=== PATIENT | male | born 1955 | race American Indian/Alaskan Native ===

== ENCOUNTER 2016-12-25 21:53 | Observation (INO) | payer MEDICARE ==
[2016-12-25 22:00] VITALS: BMI 34.4
[2016-12-25] MEDS ORDERED: Morphine 2 mg/ml ISec IVP STA (22:18)
--- NOTE | 2016-12-25 22:22 | ED PDOC ---
Arrival/HPI - General Chief Complaint: Chest Pain Time Seen by Provider: 12/25/16 21:55 Historian: Patient, Family - History of Present Illness Narrative History of Present Illness (Text): 12/25/16 22:17 Derrek Fry is a 61 year old male, whose past medical history includes CAD with stents, [place], hypertension, diabetes, hyperlipidemia, and recent spinal fusion surgery in 10/2016, who presents to the emergency department complaining of chest pain and nausea today. Patient reports associated vomiting, diarrhea, and occasional abdominal discomfort. Patient denies any fever, chills, shortness of breath, urinary symptoms, headache, dizziness, or any other complaints. Time/Duration: Other (today) Symptom Onset: Gradual Symptom Course: Unchanged Activities at Onset: Rest, Light Context: Home Past Medical History - Provider Review Nursing Documentation Reviewed: Yes - Infectious Disease Hx of Infectious Diseases: None - Tetanus Immunization Tetanus Immunization: Up to Date - Cardiac Hx Cardiac Disorders: Yes Hx Hypertension: Yes - Pulmonary Hx Respiratory Disorders: Yes Hx Sleep Apnea: Yes - Neurological Hx Neurological Disorder: No - HEENT Hx HEENT Disorder: No - Renal Hx Renal Disorder: No - Endocrine/Metabolic Hx Endocrine Disorders: No Hx Diabetes Mellitus Type 2: Yes Other/Comment: NIDDM - Hematological/Oncological Hx Blood Disorders: No - Integumentary Hx Dermatological Disorder: No - Musculoskeletal/Rheumatological Hx Musculoskeletal Disorders: Yes Hx Degenerative Joint Disease: Yes Hx Falls: No - Gastrointestinal Hx Gastrointestinal Disorders: No - Genitourinary/Gynecological Hx Genitourinary Disorders: No - Psychiatric Hx Psychophysiologic Disorder: No Hx Anxiety: No Hx Bipolar Disorder: No Hx Depression: No Hx Emotional Abuse: No Hx Hallucinations: No Hx Panic Disorder: No Hx Post Traumatic Stress Disorder: No Hx Psychosis: No Hx Physical Abuse: No Hx Schizophrenia: No Hx Sexual Abuse: No Hx Substance Use: Yes (H/O) - Surgical History Hx Coronary Stent: Yes (2014) Other/Comment: right hip replacement - Anesthesia Hx Anesthesia: Yes Hx Anesthesia Reactions: No Hx Malignant Hyperthermia: No - Suicidal Assessment Feels Threatened In Home Enviroment: No Family/Social History - Physician Review Nursing Documentation Reviewed: Yes Family/Social History: No Known Family HX Smoking Status: Current Some Days Smoker Hx Alcohol Use: No Hx Substance Use: Yes (H/O) Substance used: marijuana Hx Substance Use Treatment: No Allergies/Home Meds Allergies/Adverse Reactions: Allergies No Known Allergies Allergy (Verified 09/13/16 09:22) Home Medications: Home Meds Medication Instructions Recorded Confirmed Morphine [Morphine Immediate 30 mg PO PRN PRN 12/26/16 12/26/16 Release Tab] Review of Systems - Physician Review All systems were reviewed & negative as marked: Yes - Review of Systems Constitutional: Normal. absent: Fevers Eyes: Normal ENT: Normal Respiratory: Normal. absent: SOB, Cough Cardiovascular: Chest Pain Gastrointestinal: Abdominal Pain, Diarrhea, Nausea, Vomiting Genitourinary Male: Normal. absent: Dysuria, Frequency, Hematuria, Urinary Output Changes Musculoskeletal: Normal. absent: Back Pain, Neck Pain Skin: Normal. absent: Rash Neurological: Normal. absent: Headache, Dizziness Endocrine: Normal Hemo/Lymphatic: Normal Psychiatric: Normal Physical Exam Vital Signs Reviewed: Yes Vital Signs Temp Pulse Resp BP Pulse Ox 12/26/16 01:30 71 16 138/78 100 12/25/16 23:08 76 18 139/68 100 12/25/16 22:00 99.6 F 82 17 143/92 H 100 Temperature: Afebrile Blood Pressure: Normal Pulse: Regular Respiratory Rate: Normal Appearance: Positive for: Well-Appearing, Non-Toxic, Comfortable Pain Distress: None Mental Status: Positive for: Alert and Oriented X 3 - Systems Exam Head: Present: Atraumatic, Normocephalic Pupils: Present: PERRL Extroacular Muscles: Present: EOMI Conjunctiva: Present: Normal Mouth: Present: Moist Mucous Membranes Neck: Present: Normal Range of Motion Respiratory/Chest: Present: Clear to Auscultation, Good Air Exchange. No: Respiratory Distress, Accessory Muscle Use Cardiovascular: Present: Regular Rate and Rhythm, Normal S1, S2. No: Murmurs Abdomen: Present: Normal Bowel Sounds. No: Tenderness, Distention, Peritoneal Signs Back: Present: Normal Inspection Upper Extremity: Present: Normal Inspection. No: Cyanosis, Edema Lower Extremity: Present: Normal Inspection. No: Edema Neurological: Present: GCS=15, CN II-XII Intact, Speech Normal Skin: Present: Warm, Dry, Normal Color. No: Rashes Psychiatric: Present: Alert, Oriented x 3, Normal Insight, Normal Concentration Medical Decision Making ED Course and Treatment: 12/25/16 22:17 Impression: 61 year old male complaining of chest pain, nausea, vomiting, diarrhea, and occasional abdominal discomfort. Plan: -- EKG -- CXR -- Labs, cardiac enzymes, lipase, VBG -- IV fluids -- Zofran -- Pepcid -- Morphine -- Reassess and disposition Prior Visits: Notes and results from previous visits were reviewed. Progress Notes: Reviewed EKG, NSR at [address]. Non-specific ST/T wave changes. 12/25/16 23:47 Reviewed radiology, CXR shows no active disease. 12/26/16 00:[address] Starks's service, awaiting call back. 12/26/16 01:14 Awaiting call back from Dr. Queen, covering for Dr. Starks. 12/26/16 02:[address] Queen, covering for Dr. Starks, who is aware and agrees with plan. Pt will go to Telemetry observation for chest pain. Pt and family agreeable with plan. - Lab Interpretations Lab Results: 12/25/16 22:10 12/25/16 22:25 Lab Results 12/25/16 22:25: pO2 50, VBG pH 7.39, VBG pCO2 45.0, VBG HCO3 27.2, VBG Total CO2 28.6 H, VBG O2 Sat (Calc) 90.0 H, VBG Base Excess 1.7, VBG Potassium 3.3 L, Sodium 141.0, Chloride 113.0 H, Glucose 116 H, Lactate 0.9, FiO2 21.0, Venous Blood Potassium 3.3 L 12/25/16 22:25: Sodium 140, Chloride 106, Potassium 3.3 L, Carbon Dioxide 26, Anion Gap 11, BUN 8, Creatinine 0.7, Est GFR ( Amer) > 60, Est GFR (Non- Af Amer) > 60, Random Glucose 115 H, Calcium 9.8, Total Bilirubin 0.5, AST 46, ALT 22, Alkaline Phosphatase 68, Lactate Dehydrogenase 362, Total Creatine Kinase 113, Troponin I < 0.01, Total Protein 7.8, Albumin 4.1, Globulin 3.8, Albumin/Globulin Ratio 1.1, Lipase 201 12/25/16 22:10: WBC 9.3, RBC 3.90, Hgb 9.8 L, Hct 30.6 L, MCV 78.5 L, MCH 25.1, MCHC 32.0, RDW 16.1 H, Plt Count 536 H, MPV 9.7 12/25/16 22:10: PT 11.1, INR 1.03, APTT 26.5 I have reviewed the lab results: Yes - RAD Interpretation Narrative RAD Interpretations (Text): CXR shows no active disease. Radiology Orders: 12/25/16 22:28 CHEST PORTABLE [RAD] Stat School Guidance Counselor: ED Physician - EKG Interpretation Interpreted by ED Physician: Yes Type: 12 lead EKG - Medication Orders Current Medication Orders: Sodium Chloride (Sodium Chloride 0.9%) 1,000 mls @ 100 mls/hr IV .Q10H [facility] Last Admin: 12/25/16 22:32 Dose: 100 mls/hr Discontinued Medications Aspirin (Aspirin) 325 mg PO ONCE STA Stop: 12/26/16 00:44 Last Admin: 12/26/16 00:53 Dose: 325 mg Famotidine (Pepcid) 20 mg IVP STAT STA Stop: 12/25/16 22:19 Last Admin: 12/25/16 22:32 Dose: 20 mg Morphine Sulfate (Morphine) 2 mg IVP STAT STA Stop: 12/25/16 22:19 Last Admin: 12/25/16 22:32 Dose: 2 mg Re-Assess: THALIA Pain Assessment Document 12/25/16 23:32 [facility] (Rec: 12/26/16 00:29 [facility] [id number]) Pain Reassessment Is this a pain reassessment? Yes Sleep Is patient sleeping during reassessment? No Presence of Pain Presence of Pain Yes Pain Scale Used Pain Scale Used Numeric Location Upper or Lower Lower Pain Location Body Site Chest Description Intensity of Pain at present 4 Morphine Sulfate (Morphine) 4 mg IVP STAT STA Stop: 12/26/16 00:44 Last Admin: 12/26/16 00:52 Dose: 4 mg Ondansetron HCl (Zofran Inj) 4 mg IVP ONCE ONE Stop: 12/25/16 22:19 Last Admin: 12/25/16 22:32 Dose: 4 mg Potassium Chloride (K-Dur 20 Meq Er Tab) 20 meq PO STAT STA Stop: 12/26/16 00:24 Last Admin: 12/26/16 00:50 Dose: 20 meq - Scribe Statement The provider has reviewed the documentation as recorded by the Scribe Mariam Mary Provider Attestation: All medical record entries made by the Lesli were at my direction and personally dictated by me. I have reviewed the chart and agree that the record accurately reflects my personal performance of the history, physical exam, medical decision making, and the department course for this patient. I have also personally directed, reviewed, and agree with the discharge instructions and disposition. Disposition/Present on Arrival - Present on Arrival Any Indicators Present on Arrival: No History of DVT/PE: No History of Uncontrolled Diabetes: No Urinary Catheter: No History of Decub. Ulcer: No History Surgical Site Infection Following: None - Disposition Have Diagnosis and Disposition been Completed?: Yes Diagnosis: Chest pain Disposition: HOSPITALIZED Disposition Time: 00:45 Patient Plan: Observation Patient Problems: Current Active Problems Problem Status Onset Chest pain Acute Condition: GOOD
[2016-12-25 22:30] LABS: HEMATOCRIT 30.6 % (42.0-52.0); MEAN CELL VOLUME 78.5 fL (80.0-105.0); MEAN CORPUSCULAR HEMOGLOBIN 25.1 pg (25.0-35.0); MEAN PLATELET VOLUME 9.7 fl (7.0-11.0); RED CELL DISTRIBUTION WIDTH 16.1 % (11.5-14.5); WHITE BLOOD COUNT 9.3 10^3/ul (4.5-11.0)
[2016-12-25 22:32] LABS: INR 1.03 (0.93-1.08); PARTIAL THROMBOPLASTIN TIME 26.5 Seconds (23.7-30.8)
[2016-12-25] MEDS: Sodium Chloride 0.9% 1,000 ML IV SCH (22:32)
[2016-12-25 22:38] LABS: VENOUS BLOOD GAS BASE EXCESS 1.7 mmol/L (0.0-2.0); VENOUS BLOOD PH 7.39 (7.32-7.43)
[2016-12-25 22:58] LABS: ALB/GLOB RATIO 1.1 (1.1-1.8); ALKALINE PHOSPHATASE 68 U/L (38-133); ALT/SGPT 22 U/L (7-56); AST/SGOT 46 U/L (15-59); BILIRUBIN,TOTAL 0.5 mg/dL (0.2-1.3); BLOOD UREA NITROGEN 8 mg/dL (7-21); CALCIUM 9.8 mg/dL (8.4-10.5); CARBON DIOXIDE 26 mmol/L (21-33); CHLORIDE 106 mmol/L (98-107); GFR AFRICAN-AMERICAN > 60; GLUCOSE,RANDOM 115 mg/dL (70-110); LIPASE 201 U/L (23-300); POTASSIUM 3.3 mmol/L (3.6-5.0); SODIUM 140 mmol/L (132-148); TOTAL PROTEIN 7.8 g/dL (5.8-8.3)
[2016-12-25 23:08] LABS: TROPONIN I < 0.01 ng/mL
[2016-12-26] MEDS ORDERED: Potassium Chloride 20 mEq ER Tab PO STA (00:23)
[2016-12-26] MEDS ORDERED: Morphine 4 mg/ml ISec IVP STA (00:43)
--- NOTE | 2016-12-26 09:01 | RAD ---
HISTORY: chest pain COMPARISON: 10/09/2016 FINDINGS: LUNGS: No focal airspace opacity. PLEURA: No significant pleural effusion identified, no pneumothorax apparent. CARDIOVASCULAR: Normal. OSSEOUS STRUCTURES: No significant abnormalities. VISUALIZED UPPER ABDOMEN: Upper abdomen is suboptimally evaluated. OTHER FINDINGS: None. IMPRESSION: No focal airspace opacity. No significant interval change.Please note that chest radiographs have low sensitivity for small pulmonary nodules. If indicated, chest CT should be obtained.
[2016-12-26] MEDS: Morphine 2 mg/ml ISec IVP PRN ×3 (09:48→18:26)
--- NOTE | 2016-12-26 10:02 | CARD ---
APPROVED REPORT EKG Measurement Heart [id number] <Conclusion> Normal sinus rhythm Left axis deviation PRWP NSSTW changes
[2016-12-26] MEDS: Metoprolol Succinate 25 mg XL Tab PO SCH (11:29)
--- NOTE | 2016-12-26 11:43 | HP ---
I saw the patient resting in bed on the second floor. He was having nausea and vomiting for 24 hours. He could not get the Zofran ordered from my office yesterday and eventually he went to the Emergency Room. He is status post recent spinal fusion on 10/16/16. PAST MEDICAL HISTORY: CAD with stents, [place], hypertension, diabetes, high cholesterol. He is here today for nausea, vomiting, chest pain, abdominal pain, not feeling well. He has hypertension and obstructive sleep apnea. He has diabetes. He has degenerative disk disease. He has a history of substance abuse in the past. Has coronary artery disease with stents. He has a right hip replacement. He had recent spinal fusion. FAMILY HISTORY: There is hypertension and diabetes in the family. SOCIAL HISTORY: He still smokes cigarettes, he smokes marijuana, history of substance abuse, no alcohol. ALLERGIES: No known drug allergies. REVIEW OF SYSTEMS: He has nausea, vomiting, chest pain. No change in vision, no change in hearing. No sore throat. He does have chest pain, discomfort. No shortness of breath. No cough. No palpitations. He has nausea, vomiting. He has some diarrhea. No problems urinating. He has severe back pain from recent spinal fusion. Upset about being here. He is upset about being nauseous. PHYSICAL EXAMINATION: VITAL SIGNS: He has a 99.6 temp, 82 pulse, 17 respiratory rate, 143/92 blood pressure. It came down to 138/78 blood pressure, 100% O2 sat on room air. GENERAL: He is alert, does not like being here, alert and oriented x 3. HEENT: His head is atraumatic, normocephalic. Extraocular muscles are intact. Pupils equal, reactive to light and accommodation. Membranes are moist. NECK: Supple, no JVD. HEART: Regular rate. Normal S1 and S2. LUNGS: Decreased breath sounds, but clear to auscultation. ABDOMEN: Soft, nontender, positive bowel sounds. EXTREMITIES: Have no edema. NEUROLOGIC: GCS is 15. Cranial nerves II-XII grossly intact. Speech is normal. SKIN: Warm and dry. He has Brilinta, Ecotrin, Glucophage, Lipitor, morphine, Norvasc, Pepcid, potassium replacement, IV fluids, metoprolol, and Zofran. LABORATORY DATA: He had a 140 sodium, potassium is 3.3. I replaced the potassium. BUN 8, creatinine 0.7, GFR is greater than 60, sugar is 115. Calcium is 9.8. Total bili is 0.5, AST is 46, ALT is 22, alk phos 68, lactate dehydrogenase is 362, total creatine kinase is 113. Troponin 1 was less than 0.01, total protein 7.8, albumin is 4.1, globulin 3.8. INR is 1.03. White count is 9.3, hemoglobin 9.8, hematocrit 30.6, platelets are 536. Chest x-ray shows no focal airspace opacity, no significant interval change, no significant abnormalities, no significant pleural effusion, no pneumothorax, but get a CAT scan. He is here for nausea, vomiting, chest pain. He is in observation. Recent spinal fusion. We will give him a cardiology consult, gastroenterology consult , Zofran, pain medications, n.p.o., IV fluids. Cedrick Starks DO cc: [id number] TT: 12/26/2016 11:42:31 tn MTDD
[2016-12-26 12:11] LABS: IRON 32 ug/dL (45-180)
--- NOTE | 2016-12-26 14:20 | CON ---
DATE: 12/26/2016 REASON FOR CONSULTATION: Chest pain. HISTORY OF PRESENT ILLNESS: The patient is a 61-year-old -[place] male who has a history of coronary artery disease status post LAD stenting. 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 Ra rebecca Pelletier, will discuss this case with me. He had a stress test within the past 1 year, and was negative. The patient presents because of chest pain as well as nausea and vomiting. PAST MEDICAL HISTORY: History of coronary artery disease status post coronary stenting, history of h ypertension, diabetes mellitus and hyperlipidemia. According to the admitting notes, the patient als o has a history of right hip replacement and recent spine fusion. MEDICATIONS: Include Brilinta 90 mg twice a day, aspirin 81 mg once a day, Glucophage 500 mg twice a day, Lipitor 10 mg once a day, morphine sulfate 1 mg intravenous q. 4 hours, Norvasc 10 mg once a da y, Pepcid 20 mg once a day, mL an hour, Toprol-XL at 25 mg once a day, Zofran 4 mg intravenous q. 6 hours p.r.n. PHYSICAL EXAMINATION: GENERAL: The patient is a middle-aged male who does not appear to be in any distress. VITAL SIGNS: Blood pressure 126/64, heart rate 70, temperature 98.6, respirations 20. HEENT: Pale conjunctivae. CHEST: Clear. HEART: S1, S2 regular. ABDOMEN: Soft. EXTREMITIES: No edema, no calf tenderness. LABORATORIES: Hemoglobin and hematocrit 9.8 and 30.6, white count 9.3, platelet count 536,000. SMA- 7 is within normal limits except for glucose of 113, potassium 3.3. Lipase is within normal limits. PT, PTT within normal limits. EKG revealed sinus rhythm, left axis deviation, poor R-wave progressi on. One set of troponins is negative. ASSESSMENT: 1. Chest pain, rule out myocardial infarction. 2. Mild hypokalemia. 3. Anemia. 4. Nausea and vomiting. RECOMMENDATIONS: The patient already has received K-Dur potassium replacement of 20 mEq. Continue B rilinta 90 mg once a day, aspirin 81 mg once a day. Increase Pepcid to 20 mg orally twice a day. Co ntinue Norvasc 10 mg once a day, Toprol-XL at 25 mg once a day. Obtain one more EKG and one more set of troponins. Bob Traore MD cc: [id number] TT: 12/26/2016 14:20:02 Confirmation # [id number] Dictation # [id number] dn
[2016-12-26 19:02] LABS: FOLATE > 20.0 ng/mL
--- NOTE | 2016-12-27 00:24 | CP.PCM.PN ---
Subjective - Date & Time of Evaluation Date of Evaluation: 12/27/16 Time of Evaluation: 00:23 - Subjective Subjective: # 24 angiocath was inserted in dorsum of left hand. Dx:Poor veonous access. Objective - Vital Signs/Intake and Output Vital Signs (last 24 hours): Temp Pulse Resp BP Pulse Ox 98.6 F 70 16 130/78 100 12/26/16 17:37 12/26/16 18:00 12/26/16 17:37 12/26/16 17:37 12/26/16 04:00 Intake and Output: 12/26/16 12/27/16 18:59 06:59 Intake Total 1020 Output Total 2400 Balance -1380 - Medications Medications: Current Medications Amlodipine Besylate (Norvasc) 10 mg PO DAILY [facility] Last Admin: 12/26/16 11:31 Dose: 10 mg Aspirin (Ecotrin) 81 mg PO DAILY [facility] Last Admin: 12/26/16 11:29 Dose: 81 mg Atorvastatin Calcium (Lipitor) 10 mg PO DIN [facility] Last Admin: 12/26/16 17:22 Dose: 10 mg Famotidine (Pepcid) 20 mg PO BID [facility] Last Admin: 12/26/16 17:25 Dose: 20 mg Sodium Chloride (Sodium Chloride 0.9%) 1,000 mls @ 100 mls/hr IV .Q10H [facility] Last Admin: 12/25/16 22:32 Dose: 100 mls/hr Metformin HCl (Glucophage) 500 mg PO BID [facility] Last Admin: 12/26/16 17:33 Dose: Not Given Metoprolol Succinate (Toprol Xl) 25 mg PO BRK [facility] Last Admin: 12/26/16 11:29 Dose: 25 mg Morphine Sulfate (Morphine) 1 mg IVP Q4H PRN PRN Reason: Pain, moderate (4-7) Last Admin: 12/27/16 00:00 Dose: 1 mg Ondansetron HCl (Zofran Inj) 4 mg IVP Q6H PRN PRN Reason: Nausea/Vomiting Ticagrelor (Brilinta) 90 mg PO BID [facility] Last Admin: 12/26/16 17:22 Dose: 90 mg - Labs Labs: PT 11.1 Seconds (9.9-11.8) 12/25/16 22:10 INR 1.03 (0.93-1.08) 12/25/16 22:10 APTT 26.5 Seconds (23.7-30.8) 12/25/16 22:10
[2016-12-27] MEDS: Morphine 2 mg/ml ISec IVP PRN ×4 (03:56→12:34)
[2016-12-27 06:26] VITALS: BP 132/86; O2SAT 100
[2016-12-27] MEDS: Metoprolol Succinate 25 mg XL Tab PO SCH (09:11)
[2016-12-27] MEDS: Sodium Chloride 0.9% 1,000 ML IV SCH ×3 (09:12→11:00)
--- NOTE | 2016-12-27 11:12 | CP.PCM.CON ---
History of Present Illness - History of Present Illness History of Present Illness: CC: Nausea/Vomiting HPI: 61 year old male who presents with nausea/vomiting. He says he has been feeling nauseated for the past week and had an episode of vomiting. He denies bloody emesis. He hasn't really had this problem before. He had recent back surgery. Denies abdominal pain currently. Reports a colonoscopy 10 years ago which was unremarkable. Denies prior h/o anemia. Denies rectal bleeding or melena currently. No sob. Eating breakfast, but doesn't like the food. Has had evaluation for IA ruled out. No prior imaging of the abdomen. Feeling better today. PMHx obesity PSHx back surgery SHX denies etoh/smoking/drugs FHx denies family history of gi cancer ROS a comprehensive review of systems was performed and was negative apart from HPI Past Patient History - Infectious Disease Hx of Infectious Diseases: None - Tetanus Immunizations Tetanus Immunization: Up to Date - Past Social History Smoking Status: Current Some Days Smoker - CARDIAC Hx Hypercholesterolemia: Yes Hx Hypertension: Yes - PULMONARY Hx Respiratory Disorders: Yes Hx Sleep Apnea: Yes - NEUROLOGICAL Hx Neurological Disorder: No - HEENT Hx HEENT Problems: No - RENAL Hx Chronic Kidney Disease: No - ENDOCRINE/METABOLIC Hx Diabetes Mellitus Type 2: Yes - HEMATOLOGICAL/ONCOLOGICAL Hx Blood Disorders: No - INTEGUMENTARY Hx Dermatological Problems: No - MUSCULOSKELETAL/RHEUMATOLOGICAL Hx Falls: No - GASTROINTESTINAL Hx Gastrointestinal Disorders: No - GENITOURINARY/GYNECOLOGICAL Hx Genitourinary Disorders: No - PSYCHIATRIC Hx Psychophysiologic Disorder: No Hx Anxiety: No Hx Bipolar Disorder: No Hx Depression: No Hx Emotional Abuse: No Hx Hallucinations: No Hx Panic Symptoms: No Hx Post Traumatic Stress Disorder: No Hx Psychosis: No Hx Physical Abuse: No Hx Schizophrenia: No Hx Sexual Abuse: No Hx Substance Use: Yes (H/O) - SURGICAL HISTORY Hx Coronary Stent: Yes (2014) Other/Comment: right hip replacement - ANESTHESIA Hx Anesthesia: Yes Hx Anesthesia Reactions: No Hx Malignant Hyperthermia: No Meds Allergies/Adverse Reactions: Allergies Allergy/AdvReac Type Severity Reaction Status Date / Time No Known Allergies Allergy Verified 09/13/16 09:22 - Medications Medications: Current Medications Amlodipine Besylate (Norvasc) 10 mg PO DAILY [facility] Last Admin: 12/27/16 09:11 Dose: 10 mg Aspirin (Ecotrin) 81 mg PO DAILY [facility] Last Admin: 12/27/16 09:11 Dose: 81 mg Atorvastatin Calcium (Lipitor) 10 mg PO DIN [facility] Last Admin: 12/26/16 17:22 Dose: 10 mg Famotidine (Pepcid) 20 mg PO BID [facility] Last Admin: 12/27/16 09:11 Dose: 20 mg Sodium Chloride (Sodium Chloride 0.9%) 1,000 mls @ 100 mls/hr IV .Q10H [facility] Last Admin: 12/27/16 11:00 Dose: Not Given Metformin HCl (Glucophage) 500 mg PO BID [facility] Last Admin: 12/27/16 09:11 Dose: 500 mg Metoprolol Succinate (Toprol Xl) 25 mg PO BRK [facility] Last Admin: 12/27/16 09:11 Dose: 25 mg Morphine Sulfate (Morphine) 1 mg IVP Q4H PRN PRN Reason: Pain, moderate (4-7) Last Admin: 12/27/16 09:07 Dose: 1 mg Ondansetron HCl (Zofran Inj) 4 mg IVP Q6H PRN PRN Reason: Nausea/Vomiting Ticagrelor (Brilinta) 90 mg PO BID [facility] Last Admin: 12/27/16 09:11 Dose: 90 mg Physical Exam - Constitutional Appears: Well, No Acute Distress - Head Exam Head Exam: ATRAUMATIC, NORMOCEPHALIC - Eye Exam Eye Exam: Normal appearance. absent: Scleral icterus Pupil Exam: PERRL - ENT Exam ENT Exam: Mucous Membranes Moist, Normal Oropharynx - Neck Exam Neck exam: Negative for: Lymphadenopathy, Thyromegaly - Respiratory Exam Respiratory Exam: Clear to Auscultation Bilateral, NORMAL BREATHING PATTERN. absent: Respiratory Distress, Stridor - Cardiovascular Exam Cardiovascular Exam: REGULAR RHYTHM, +S1, +S2 - GI/Abdominal Exam GI & Abdominal Exam: Soft. absent: Distended, Guarding, Tenderness - Extremities Exam Extremities exam: Positive for: normal capillary refill. Negative for: pedal edema - Neurological Exam Neurological exam: Alert, Oriented x3 - Psychiatric Exam Psychiatric exam: Normal Affect, Normal Mood - Skin Skin Exam: Dry, Normal Color, Warm Results - Vital Signs Recent Vital Signs: Last Vital Signs Temp 98.1 F 12/27/16 06:00 Pulse 74 12/27/16 09:11 Resp 20 12/27/16 06:00 BP 132/86 05/14/17 09:11 Pulse Ox 100 12/27/16 06:00 - Labs Result Diagrams: 12/25/16 22:10 12/25/16 22:25 Labs: Laboratory Results - last 24 hr 12/26/16 12/26/16 12/26/16 11:35 12:05 12:47 Iron 32 L TIBC 260 L % Saturation 12 L Ferritin 80.9 Troponin I < 0.01 Vitamin B12 354 Folate > 20.0 12/26/16 18:00 Iron TIBC % Saturation Ferritin Troponin I < 0.01 Vitamin B12 Folate Assessment & Plan - Assessment and Plan (Free Text) Assessment: 61 year old male with h/o obesity who presents with n/v,now resolved 1. Nausea and vomiting 2. Microcytic anemia Plan: -resolved -suggested CT scan, patient declined due to inability to lie on his back -recommend outpatient evaluation considering he is feeling better -recommend egd/colonoscopy as outpatient -discussed with patient possible causes of anemia including chronic blood loss and gi disease including malignancy - Date & Time Date: 12/27/16 Time: 11:12
[2016-12-27 12:47] VITALS: PULSE 106; RESP 18; TEMP 99
--- NOTE | 2016-12-27 18:16 | DS ---
He is very upset. He is upset he could not eat yesterday. He is upset that the assurance sourcing manager did not see him yesterday. He refused labs this morning. He wants to go home. We are going to discharge him. From what I have on the blood test he did well. I spoke to the assurance sourcing manager to set up for outpatient testing. PHYSICAL EXAMINATION: VITAL SIGNS: 98.1 temp, 74 pulse, 132/86 blood pressure, 20 respiratory rate, 100% O2 sat on room air. HEENT: Head is atraumatic, normocephalic. HEART: Regular rate. LUNGS: Clear to auscultation. ABDOMEN: Soft, obese, nontender. EXTREMITIES: No edema. LABORATORY DATA: He has got a recent spinal fusion. He is kind of miserable. He had a 140 sodium, potassium 3.3 and we gave him some potassium. He would not let us repeat the potassium. His iron was low at 32. All of the troponins are negative x 3. I am going to give him prescriptions for his medications plus iron and hopefully he will do well and take his medications and follow up in the office this week. He was here for chest pain. negative for nausea, vomiting. He is eating very well and will take his medications at home. Cedrick Starks DO cc: [id number] TT: 12/27/2016 18:15:57 whitney LIZARRAGA
== END 2016-12-27 14:01 | disposition home or self-care (01) ==
LOC: ED 21:53 → ERH 12-26 00:44 → UNDOADMOB 12-26 01:45 → ERH 12-26 02:07 → 2RNO 12-26 03:16 → UNDODISOB 12-27 14:01
PROVIDERS: ADMIT Family Medicine; ATTEND Family Medicine
DX: R07.9 Chest pain, unspecified (principal); I25.10 Atherosclerotic heart disease of native coronary artery without angina pectoris; I10 Essential (primary) hypertension; E78.5 Hyperlipidemia, unspecified; E11.9 Type 2 diabetes mellitus without complications; F12.90 Cannabis use, unspecified, uncomplicated; R11.2 Nausea with vomiting, unspecified; G47.33 Obstructive sleep apnea (adult) (pediatric); E87.6 Hypokalemia; E66.9 Obesity, unspecified; D50.9 Iron deficiency anemia, unspecified; I25.2 Old myocardial infarction; E78.00 Pure hypercholesterolemia, unspecified; F17.210 Nicotine dependence, cigarettes, uncomplicated; Z95.5 Presence of coronary angioplasty implant and graft; Z98.1 Arthrodesis status; Z83.3 Family history of diabetes mellitus; Z82.49 Family history of ischemic heart disease and other diseases of the circulatory system
CPT/HCPCS: 36415; 71010; 80053; 82550; 82607; 82728; 82746; 82803; 83540; 83550; 83615; 83690; 84484; 85027; 85610; 85730; 87081; 93005; 96374; 97116; 97161; 99285; G0378; G8978; G8979; J2270; J2405; J3480; J7040

== ENCOUNTER 2017-01-25 08:08 | Day surgery (SDC) | payer MEDICARE ==
[2017-01-15 10:27] VITALS: BMI 32.0
[2017-01-25] MEDS ORDERED: Lactated Ringer's 1,000 ML IV SCH (09:19)
[2017-01-25] MEDS ORDERED: Propofol 10 mg/ml Inj (20 ML) ONE ×2 (09:29→10:30)
[2017-01-25 11:34] VITALS: PULSE 75
[2017-01-25 11:58] VITALS: BP 131/74; RESP 16; TEMP 97.5; O2SAT 98
== END 2017-01-25 12:50 | disposition home or self-care (01) ==
LOC: ENDO 08:08
PROVIDERS: ATTEND Internal Medicine
DX: D50.9 Iron deficiency anemia, unspecified (principal); K63.5 Polyp of colon; K62.1 Rectal polyp; R19.7 Diarrhea, unspecified; K29.50 Unspecified chronic gastritis without bleeding; K64.8 Other hemorrhoids; I25.10 Atherosclerotic heart disease of native coronary artery without angina pectoris; E11.9 Type 2 diabetes mellitus without complications; Z80.0 Family history of malignant neoplasm of digestive organs
CPT/HCPCS: 43239; 45380; 45381; 45385; 82948; 88305; 88342; J2001; J2704; J3010; J7040; J7120

== ENCOUNTER 2018-02-09 06:18 | Emergency (ER) | payer MEDICARE ==
[2018-02-09 06:18] VITALS: BMI 32.0
[2018-02-09 06:38] VITALS: RESP 20; TEMP 97.9
[2018-02-09] MEDS ORDERED: Lidocaine 5% Patch TD STA (07:43)
--- NOTE | 2018-02-09 07:59 | ED PDOC ---
Arrival/HPI - General Chief Complaint: Back Pain Time Seen by Provider: 02/09/18 07:33 Historian: Patient - History of Present Illness Narrative History of Present Illness (Text): 02/09/18 07:52 Patient is a 62 year old male whose past medical history includes spinal fusion , diabetes mellitus type2, hypertension, hyperlipidemia, and left hip replacement, who presents to the Emergency department complaining of acute on chronic lower back pain which started approximately 4 hours ago. Patient reports that at 4:00am this morning he woke up with shooting back pain which radiated to his right leg and with associated bilateral leg numbness. The pain and associated numbness made it difficult for patient to stand but he was subsequently able to after his numbness resolved. Patient denies any urinary or bowel incontinence, saddle anaesthesia, trauma, or new injuries. Patient denies fevers, chills, cough, shortness of breath, chest pain, dyspnea on exertion, abdominal pain, nausea, vomiting, diarrhea, back pain, headache, dizziness, or any other complaint. Of note he took Naprosyn yesterday but didn' t take any medication for his pain today. PMD: orthopedic Surgeon: (hip replacement) Back surgeon: (patient didn't know the physicians full last name) Time/Duration: 4-6 hours Quality: Other (Shooting back pain) Activities at Onset: Rest Context: Home Past Medical History - Provider Review Nursing Documentation Reviewed: Yes - Infectious Disease Hx of Infectious Diseases: None - Tetanus Immunization Tetanus Immunization: Up to Date - Cardiac Hx Hypertension: Yes Hx Pacemaker: No - Pulmonary Hx Respiratory Disorders: Yes Hx Sleep Apnea: Yes - Neurological Hx Paralysis: No - HEENT Hx HEENT Disorder: No - Renal Hx Renal Disorder: No - Endocrine/Metabolic Hx Diabetes Mellitus Type 2: Yes - Hematological/Oncological Hx Blood Transfusions: No Hx Blood Transfusion Reaction: No - Integumentary Hx Dermatological Disorder: No - Musculoskeletal/Rheumatological Hx Musculoskeletal Disorders: Yes - Gastrointestinal Hx Gastrointestinal Disorders: No - Genitourinary/Gynecological Hx Genitourinary Disorders: No - Psychiatric Hx Emotional Abuse: No Hx Physical Abuse: No Hx Substance Use: No - Surgical History Other/Comment: left hip replacement. herniated disk - Anesthesia Hx Anesthesia: No Hx Anesthesia Reactions: No Hx Malignant Hyperthermia: No - Suicidal Assessment Feels Threatened In Home Enviroment: No Family/Social History - Physician Review Nursing Documentation Reviewed: Yes Family/Social History: No Known Family HX Smoking Status: Current Some Days Smoker Hx Alcohol Use: No Hx Substance Use: No Substance used: marijuana Hx Substance Use Treatment: No Allergies/Home Meds Allergies/Adverse Reactions: Allergies No Known Allergies Allergy (Verified 09/13/16 09:22) Home Medications: Home Meds Medication Instructions Recorded Confirmed Ticagrelor [Brilinta] 60 mg PO BID 01/15/17 01/25/17 Review of Systems - Physician Review All systems were reviewed & negative as marked: Yes - Review of Systems Constitutional: absent: Fevers, Night Sweats Respiratory: absent: SOB, Cough Cardiovascular: absent: Chest Pain, BRUNSON Gastrointestinal: absent: Abdominal Pain, Diarrhea, Nausea, Vomiting Musculoskeletal: Back Pain. absent: Neck Pain Neurological: absent: Headache, Dizziness Physical Exam Vital Signs Reviewed: Yes Vital Signs Temp Pulse Resp BP Pulse Ox 02/09/18 10:00 97.9 F 62 20 130/68 100 02/09/18 06:37 97.9 F 58 L 20 127/74 99 Temperature: Afebrile Blood Pressure: Normal Pulse: Bradycardic Respiratory Rate: Normal Appearance: Positive for: Well-Appearing Mental Status: Positive for: Alert and Oriented X 3 - Systems Exam Head: Present: Atraumatic, Normocephalic Pupils: Present: PERRL Extroacular Muscles: Present: EOMI Conjunctiva: Present: Normal Mouth: Present: Moist Mucous Membranes Neck: Present: Normal Range of Motion Respiratory/Chest: Present: Clear to Auscultation, Good Air Exchange. No: Respiratory Distress, Accessory Muscle Use Cardiovascular: Present: Regular Rate and Rhythm, Normal S1, S2. No: Murmurs Abdomen: No: Tenderness, Distention, Peritoneal Signs Back: Present: Paraspinal Tenderness (right lower lumbar tenderness), Pain with Leg Raise ((+) right leg raise) Upper Extremity: Present: Normal Inspection. No: Cyanosis, Edema Lower Extremity: Present: Normal Inspection. No: Edema Neurological: Present: GCS=15, CN II-XII Intact, Speech Normal, Motor Func Grossly Intact, Normal Sensory Function, Memory Normal Skin: Present: Warm, Dry, Normal Color. No: Rashes Psychiatric: Present: Alert, Oriented x 3, Normal Insight, Normal Concentration Medical Decision Making ED Course and Treatment: 02/09/18 08:02 Impression: Patient is a 62 year old male who presents to the Emergency department complaining of lower back pain radiating to right lower extremity with associated bilateral leg numbness. Differential Diagnosis included but are not limited to: Musculoskeletal pain Plan: --Tylenol --Flexeril --Toradol --Lidoderm -- Back X-ray -- Reassess and disposition Prior Visits: Notes and results from previous visits were reviewed. Progress Notes: 02/09/18 09:19 Lumbar spine X-ray: Dictator : Dc Aceves MD IMPRESSION: Interval L5-S1 fusion both posteriorly and through intervertebral technique. Stable minimal grade 1 spondylolisthesis L5-S1. A minimal straightening of the curvature with multilevel spondylosis remaining bile but diffuse. 02/09/18 10:04 Reevaluation: On reevaluation the patient's back pain has improved and he denies any numbness or weakness, and is able to ambulate with assistance. I have discussed the results and plan with the patient, who expresses understanding. Patient given the opportunity to ask question, all questions were answered and there is agreement with the plan to discharge the patient home with prescription for Flexeril, Toradol, and Lidoderm patch. Patient is stable for discharge. Patient was instructed to follow up with his PMD and back surgeon. - Lab Interpretations Lab Results: Lab Results 02/09/18 06:29: POC Glucose (mg/dL) 73 - RAD Interpretation Radiology Orders: 02/09/18 07:43 LS SPINE WITH OBL > 18 YRS OLD [RAD] Stat Raised Printer: Radiologist - Medication Orders Current Medication Orders: Discontinued Medications Acetaminophen (Tylenol 325mg Tab) 975 mg PO STAT STA Stop: 02/09/18 07:44 Last Admin: 02/09/18 08:12 Dose: 975 mg MAR Pain/Vitals Document 02/09/18 08:12 OCS (Rec: 02/09/18 08:13 OCS [id number]) Pain Reassessment Is This A Pain ReAssessment? No Sleep Is patient sleeping during reassessment? No Presence of Pain Presence of Pain Yes Pain Scale Used Pain Scale Used Numeric Location Pain Location Body Site Back Description Constant Intensity 8 Scale Used Numeric Aggravating Factors ADL's Cyclobenzaprine HCl (Flexeril) 5 mg PO STAT STA Stop: 02/09/18 07:44 Last Admin: 02/09/18 08:13 Dose: 5 mg Ketorolac Tromethamine (Toradol) 30 mg IM STAT STA Stop: 02/09/18 07:44 Last Admin: 02/09/18 08:12 Dose: 30 mg MAR Pain Assessment Document 02/09/18 08:12 OCS (Rec: 02/09/18 08:12 OCS [id number]) Pain Reassessment Is this a pain reassessment? No Sleep Is patient sleeping during reassessment? No Presence of Pain Presence of Pain Yes Pain Scale Used Pain Scale Used Numeric Location Pain Location Body Site Back Description Description Constant Intensity of Pain at present 8 Aggravating Factors ADL's IM Administration Charges Document 02/09/18 08:12 OCS (Rec: 02/09/18 08:12 OCS [id number]) Injection Site MAR Injection Site Left Deltoid Charges for Administration # of IM Administrations 1 Lidocaine (Lidoderm) 1 ea TD STAT STA Stop: 02/09/18 07:44 Last Admin: 02/09/18 08:13 Dose: 1 ea MAR Transdermal Patch Site Document 02/09/18 08:13 OCS (Rec: 02/09/18 08:13 OCS [id number]) Transdermal Patch Site Transdermal Patch Site Left Lower Back - Scribe Statement The provider has reviewed the documentation as recorded by the Scribe Bryce Cruz Provider Scribe Attestation: All medical record entries made by the Scribe were at my direction and personally dictated by me. I have reviewed the chart and agree that the record accurately reflects my personal performance of the history, physical exam, medical decision making, and the department course for this patient. I have also personally directed, reviewed, and agree with the discharge instructions and disposition. Disposition/Present on Arrival - Present on Arrival Any Indicators Present on Arrival: No History of DVT/PE: No History of Uncontrolled Diabetes: No Urinary Catheter: No History of Decub. Ulcer: No History Surgical Site Infection Following: None - Disposition Have Diagnosis and Disposition been Completed?: Yes Diagnosis: Back pain Disposition: HOME/ ROUTINE Disposition Time: 10:06 Patient Plan: Discharge Condition: IMPROVED Discharge Instructions (ExitCare): Low Back Pain in Adults Additional Instructions: SE MONTALVO, thank you for letting us take care of you today. Your provider was Gerardo Parmar DO and you were treated for BACK PAIN. The emergency medical care you received today was directed at your acute symptoms. If you were prescribed any medication, please fill it and take as directed. It may take several days for your symptoms to resolve. Return to the Emergency Department if your symptoms worsen, do not improve, or if you have any other problems. Please contact your doctor or call one of the physicians/clinics you have been referred to that are listed on the Patient Visit Information form that is included in your discharge packet. Bring any paperwork you were given at discharge with you along with any medications you are taking to your follow up visit. Our treatment cannot replace ongoing medical care by a primary care provider outside of the emergency department. Thank you for allowing the [facility] team to be part of your care today. If you had an X-Ray or CT scan: A Radiologist will review the ED reading if any change in treatment is needed we will contact you. If you had a blood, urine, or wound culture: It will take several days for the results, if any change in treatment is needed we will contact you. If you had an STI test: It will take 48 hours for the results. Please call after 1 week if you have not heard back. Prescriptions: Cyclobenzaprine [Flexeril] 5 mg PO TID PRN #20 tab PRN Reason: Muscle Spasm Lidocaine 5% [Lidoderm] 1 ea TD DAILY PRN #4 patch PRN Reason: Pain, Moderate (4-7) Naproxen 500 mg PO BID PRN #30 tab PRN Reason: Pain, Moderate (4-7) Referrals: Cedrick Starks DO [Primary Care Provider] - Follow up with primary Forms: [employer] (Lao), WORK NOTE
--- NOTE | 2018-02-09 09:14 | RAD ---
PROCEDURE: Radiographs of the Lumbar Spine. HISTORY: back pain Lumbar spine radiographs 05/08/2015 COMPARISON: No prior. FINDINGS: BONES: Stable minimal retrolisthesis L5-S1 stable lysed by interval placement of left transpedicular screws at L5 and S1 and unified by and interconnecting piper as well as stabilization by intervertebral fusion device at L5-S1 disc interspace. No interval change in a pre is appreciated and mild straightening of lumbar lordotic curvature. No interval fracture or spondylolisthesis. Limited multilevel lumbar spondylosis identified and mild multilevel facet arthropathy is appreciated without spondylolysis. Intervertebral disc heights are adequately preserved. DISC SPACES: As above. OTHER FINDINGS: None. IMPRESSION: Interval L5-S1 fusion both posteriorly and through intervertebral technique. Stable minimal grade 1 spondylolisthesis L5-S1. A minimal straightening of the curvature with multilevel spondylosis remaining bile but diffuse.
[2018-02-09 10:32] VITALS: BP 130/68; PULSE 62; O2SAT 100
== END 2018-02-09 10:00 | disposition home or self-care (01) ==
LOC: ED 06:18
DX: M54.5 Low back pain (principal); I10 Essential (primary) hypertension; E78.5 Hyperlipidemia, unspecified; E11.9 Type 2 diabetes mellitus without complications
CPT/HCPCS: 72110; 82948; 96372; 99282; J1885

== ENCOUNTER 2018-03-06 01:29 | Inpatient (IN) | payer MEDICARE, OTHER ==
[2018-03-06 01:34] VITALS: BMI 35.6
[2018-03-06 01:54] LABS: BASO # 0.02 K/mm3 (0.0-2.0); BASO % 0.2 % (0.0-3.0); EOS # 0.5 (0.0-0.7); EOS % 5.8 % (1.5-5.0); GRAN # 3.26 (1.4-6.5); GRAN % 37.3 % (50.0-68.0); HEMOGLOBIN 12.2 g/dL (14.0-18.0); LYMPH # 4.1 (1.2-3.4); MEAN CELL VOLUME 81.2 fl (80.0-105.0); MEAN CORPUSCULAR HEMOGLOBIN 26.6 pg (25.0-35.0); MEAN CORPUSCULAR HGB CONC 32.8 g/dl (31.0-37.0); MEAN PLATELET VOLUME 10.2 fl (7.0-11.0); MONO # 0.9 (0.1-0.6); MONO % 9.7 % (1.0-6.0); RBC 4.58 10^6/uL (3.5-6.1); RED CELL DISTRIBUTION WIDTH 15.9 % (11.5-14.5); WHITE BLOOD COUNT 8.8 10^3/ul (4.5-11.0)
[2018-03-06 02:11] LABS: ALB/GLOB RATIO 1.3 (1.1-1.8); ALBUMIN 4.2 g/dL (3.0-4.8); ALT/SGPT 25 U/L (7-56); AST/SGOT 28 U/L (17-59); BLOOD UREA NITROGEN 14 mg/dL (7-21); CALCIUM 9.2 mg/dL (8.4-10.5); GFR AFRICAN-AMERICAN > 60; GFR NON-AFRICAN AMERICAN > 60
--- NOTE | 2018-03-06 02:14 | ED PDOC ---
Arrival/HPI - General Chief Complaint: Chest Pain Time Seen by Provider: 03/06/18 01:39 Historian: Patient - History of Present Illness Narrative History of Present Illness (Text): 03/06/18 02:14 62 year old male. whose past medical history includes CAD with stents, [place], hypertension, diabetes, hyperlipidemia, and recent spinal fusion surgery in 2016, presents to the emergency department complaining of left-sided chest pain associated with cough and sputum production for the past 4-5 days. 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 Patient states his chest really hurts and has not gone away completely. Patient denies any execration related. Patient denies any fever, chills, shortness of breath, abdominal pain, nausea, vomiting , diarrhea, urinary symptoms, back pain, neck pain, headache, dizziness, or any other complaints. PMD: Dr. Starks Time/Duration: Other (4-5 days) Symptom Onset: Gradual Symptom Course: Unchanged Activities at Onset: Light Context: Home Past Medical History - Provider Review Nursing Documentation Reviewed: Yes - Infectious Disease Hx of Infectious Diseases: None - Tetanus Immunization Tetanus Immunization: Up to Date - Cardiac Hx Hypertension: Yes Hx Pacemaker: No - Pulmonary Hx Respiratory Disorders: Yes Hx Sleep Apnea: Yes - Neurological Hx Paralysis: No - HEENT Hx HEENT Disorder: No - Renal Hx Renal Disorder: No - Endocrine/Metabolic Hx Diabetes Mellitus Type 2: Yes - Hematological/Oncological Hx Blood Transfusions: No Hx Blood Transfusion Reaction: No - Integumentary Hx Dermatological Disorder: No - Musculoskeletal/Rheumatological Hx Musculoskeletal Disorders: Yes - Gastrointestinal Hx Gastrointestinal Disorders: No - Genitourinary/Gynecological Hx Genitourinary Disorders: No - Psychiatric Hx Emotional Abuse: No Hx Physical Abuse: No Hx Substance Use: No - Surgical History Other/Comment: left hip replacement. herniated disk - Anesthesia Hx Anesthesia: No Hx Anesthesia Reactions: No Hx Malignant Hyperthermia: No - Suicidal Assessment Feels Threatened In Home Enviroment: No Family/Social History - Physician Review Nursing Documentation Reviewed: Yes Family/Social History: No Known Family HX Smoking Status: Current Some Days Smoker Hx Alcohol Use: No Hx Substance Use: No Substance used: marijuana Hx Substance Use Treatment: No Allergies/Home Meds Allergies/Adverse Reactions: Allergies No Known Allergies Allergy (Verified 09/13/16 09:22) Home Medications: Home Meds Medication Instructions Recorded Confirmed Ticagrelor [Brilinta] 60 mg PO BID 01/15/17 03/06/18 Review of Systems - Physician Review All systems were reviewed & negative as marked: Yes - Review of Systems Constitutional: absent: Fevers, Other (Chills) Respiratory: Cough, Sputum. absent: SOB Cardiovascular: Chest Pain Gastrointestinal: absent: Diarrhea, Nausea, Vomiting Musculoskeletal: absent: Back Pain, Neck Pain Neurological: absent: Headache, Dizziness Physical Exam Vital Signs Reviewed: Yes Vital Signs Temp Pulse Resp BP Pulse Ox 03/06/18 05:30 62 18 135/81 98 03/06/18 02:57 58 L 18 132/85 100 03/06/18 01:30 98.7 F 59 L 20 145/88 100 Temperature: Afebrile Blood Pressure: Normal Pulse: Regular Respiratory Rate: Normal Appearance: Positive for: Well-Appearing, Non-Toxic, Comfortable Pain Distress: None Mental Status: Positive for: Alert and Oriented X 3 - Systems Exam Head: Present: Atraumatic, Normocephalic Pupils: Present: PERRL Extroacular Muscles: Present: EOMI Conjunctiva: Present: Normal Mouth: Present: Moist Mucous Membranes Neck: Present: Normal Range of Motion Respiratory/Chest: Present: Wheezes (left sided best heard posteriorly ), Rhonchi (left sided best heard posteriorly ). No: Respiratory Distress, Accessory Muscle Use Cardiovascular: Present: Regular Rate and Rhythm, Normal S1, S2. No: Murmurs Abdomen: No: Tenderness, Distention, Peritoneal Signs Back: Present: Normal Inspection Upper Extremity: Present: Normal Inspection. No: Cyanosis, Edema Lower Extremity: Present: Normal Inspection. No: Edema Neurological: Present: GCS=15, CN II-XII Intact, Speech Normal Skin: Present: Warm, Dry, Normal Color. No: Rashes Psychiatric: Present: Alert, Oriented x 3, Normal Insight, Normal Concentration Medical Decision Making ED Course and Treatment: 03/06/18 02:14 Impression: 62 year old male presents complaining of left-sided chest pain associated with cough and kaur looking sputum for the past 4-5 days. Differential Diagnosis included but are not limited to: Bronchitis VS Pneumonia VS Acute coronary syndrome VS PE Plan: -- CT Angio Chest PE Protocal -- Labs -- EKG -- Chest X-Ray -- Albuterol, Aspirin, Douneb, Morphine, Solu-Medrol, Zofran Inj -- Urine Culture -- Urinalysis -- Reassess and disposition Progress Notes: 03/06/18 01:31 EKG shows Sinus Bradycardia at 57 BPM with sudonormalization of the anterior and lateral leads comapred to EKG on 12/28/16. Interpreted by me. 03/06/18 03:28 EKG shows NSR at 63 BPM unchanged from first EKG. Interpreted by me 03/06/18 03:12 CXR Impression:As read by me, no pneumothorax, no pneumonia, no cardiomegaly, no infiltrates EXAM: CT Angiography Chest With Intravenous Contrast Dictated and Authenticated by: Jeromy Salgado MD 03/06/2018 3:57 AM IMPRESSION: 1. No pulmonary embolus. 2. Nonobstructing right nephrolithiasis. 3. 2.4 cm right adrenal nodule. Correlate clinically to determine the need for further evaluation. 03/06/18 03:[address] Starks who is aware and agrees with the plan. Accepts patient into his service. Requests to call Dr. Alexander Poole Ware[employer] Inventory Clerk for consult. 03/06/18 04:[address] Galarza covering Dr. Poole who is aware and agrees with the plan. Requests Lovonox and Plavix to be administered. Will see patient tomorrow. - Lab Interpretations Microbiology Results: Microbiology Results 03/06/18 02:35 Urine,Clean Catch Urine Culture - Final No Growth (<1,000 CFU/ML) Lab Results: 03/06/18 01:40 03/06/18 01:40 Lab Results 03/06/18 02:35: Urine Color Yellow, Urine Appearance Clear, Urine pH 6.0, Ur Specific Mittie 1.025, Urine Protein Negative, Urine Glucose (UA) Negative, Urine Ketones Negative, Urine Blood Trace-lysed H, Urine Nitrate Negative, Urine Bilirubin Negative, Urine Urobilinogen 0.2, Ur Leukocyte Esterase Negative , Urine RBC 2 - 5, Urine WBC 2 - 5, Ur Epithelial Cells 1 - 3, Urine Bacteria Mod 03/06/18 01:40: Sodium 144, Potassium 3.6, Chloride 108 H, Carbon Dioxide 25, Anion Gap 15, BUN 14, Creatinine 0.7 L, Est GFR ( Amer) > 60, Est GFR ( Non-Af Amer) > 60, Random Glucose 149 H, Calcium 9.2, Total Bilirubin 0.4, AST 28, ALT 25, Alkaline Phosphatase 57, Lactate Dehydrogenase 504, Total Creatine Kinase 586 H, CK-MB (CK-2) 4.0 H, CK-MB (CK-2) % Cancelled, Troponin I 0.24 H* D , NT-Pro-B Natriuret Pep 111, Total Protein 7.5, Albumin 4.2, Globulin 3.2, Albumin/Globulin Ratio 1.3 03/06/18 01:40: PT 10.7, INR 0.94 03/06/18 01:40: WBC 8.8, RBC 4.58, Hgb 12.2 L, Hct 37.2 L, MCV 81.2, MCH 26.6, MCHC 32.8, RDW 15.9 H, Plt Count 308, MPV 10.2, Gran % 37.3 L, Lymph % (Auto) 47.0 H, Beauregard % (Auto) 9.7 H, Eos % (Auto) 5.8 H, Baso % (Auto) 0.2, Gran # 3.26 , Lymph # (Auto) 4.1 H, Beauregard # (Auto) 0.9 H, Eos # (Auto) 0.5, Baso # (Auto) 0.02 I have reviewed the lab results: Yes - RAD Interpretation Radiology Orders: 03/06/18 01:40 CHEST PORTABLE [RAD] Stat 03/06/18 02:13 ANGIO CHEST PE PROTOCOL [CT] Stat - EKG Interpretation Interpreted by ED Physician: Yes Type: 12 lead EKG - Medication Orders Current Medication Orders: Acetaminophen (Tylenol 325mg Tab) 650 mg PO Q4H PRN PRN Reason: Other Last Admin: 03/06/18 19:29 Dose: 650 mg [facility] Pain/Vitals Document 03/06/18 19:29 (Rec: 03/06/18 19:29 [id number]) Sleep Is patient sleeping during reassessment? No Presence of Pain Presence of Pain No Pain Scale Used Pain Scale Used Numeric Re-Assess: [facility] Pain/Vitals Document 03/06/18 20:29 FDE (Rec: 03/06/18 20:38 FDE [id number]) Pain Reassessment Is This A Pain ReAssessment? Yes Sleep Is patient sleeping during reassessment? Yes Amlodipine Besylate (Norvasc) 10 mg PO HS [facility] Last Admin: 03/06/18 21:00 Dose: 10 mg MAR Blood Pressure Document 03/06/18 21:00 FDE (Rec: 03/06/18 21:00 FDE [id number]) Blood Pressure Blood Pressure (100/60-150/90) 149/87 Aspirin (Aspirin Chewable) 81 mg PO DAILY [facility] Last Admin: 03/07/18 09:46 Dose: Atorvastatin Calcium (Lipitor) 10 mg PO [facility] Last Admin: 03/06/18 21:00 Dose: 10 mg Ceftriaxone Sodium (Rocephin 1 Gram Ivpb) 1 gm in 100 mls @ 100 mls/hr IVPB DAILY [facility] PRN Reason: Protocol Last Admin: 03/06/18 14:47 Dose: 100 mls/hr eMAR Start Stop Document 03/06/18 14:47 (Rec: 03/06/18 14:48 PAULA [id number]) Intravenous Solution Start Date 03/06/18 Start Time 14:48 Insulin Human Regular (Humulin R Med) 0 units SC [facility] PRN Reason: Protocol Last Admin: 03/07/18 07:30 Dose: Not Given Non-Admin Reason: Blood Sugar Parameter [facility] Blood Glucose Document 03/07/18 07:30 RDS (Rec: 03/07/18 07:30 RDS [id number]) Blood Glucose Finger Stick Blood Glucose (70-120) 134 Metoprolol Succinate (Toprol Xl) 25 mg PO DAILY [facility] Last Admin: 03/07/18 09:47 Dose: Morphine Sulfate (Morphine) 2 mg IVP Q4H PRN PRN Reason: Pain, moderate (4-7) Ticagrelor (Brilinta) 90 mg PO BID [facility] Last Admin: 03/07/18 09:46 Dose: Discontinued Medications Albuterol Sulfate (Albuterol 0.083% Inhal Beckie (2.5 Mg/3 Ml) Ud) 5 mg INH STAT STA Stop: 03/06/18 02:16 Last Admin: 03/06/18 02:28 Dose: 5 mg Albuterol/Ipratropium (Duoneb 3 Mg/0.5 Mg (3 Ml) Ud) 3 ml IH STAT STA Stop: 03/06/18 02:16 Last Admin: 03/06/18 02:28 Dose: 3 ml Aspirin (Aspirin Chewable) 324 mg PO STAT STA Stop: 03/06/18 02:16 Last Admin: 03/06/18 02:15 Dose: Clopidogrel Bisulfate (Plavix) 300 mg PO STAT STA Stop: 03/06/18 04:18 Last Admin: 03/06/18 04:25 Dose: 300 mg Enoxaparin Sodium (Lovenox) 110 mg SC Q24H [facility] PRN Reason: Protocol Last Admin: 03/06/18 04:30 Dose: 110 mg Subcutaneous Administrations Document 03/06/18 04:30 AD (Rec: 03/06/18 05:00 AD [id number]) Injection Site MAR Injection Site Left Abdomen Charges for Administration # of Subcutaneous Administrations 1 Enoxaparin Sodium (Lovenox) 110 mg SC ONCE ONE PRN Reason: Protocol Stop: 03/06/18 17:01 Last Admin: 03/06/18 18:00 Dose: 110 mg Subcutaneous Administrations Document 03/06/18 18:00 (Rec: 03/06/18 18:00 DRA [id number]) Injection Site MAR Injection Site Right Abdomen Charges for Administration # of Subcutaneous Administrations 1 Methylprednisolone (Solu-Medrol) 125 mg IVP STAT STA Stop: 03/06/18 02:16 Last Admin: 03/06/18 02:29 Dose: 125 mg IVP Administration Document 03/06/18 02:29 AD (Rec: 03/06/18 02:29 AD [id number]) Charges for Administration # of IVP Administrations 1 Metoprolol Tartrate (Lopressor) 25 mg PO ONCE STA Stop: 03/06/18 19:01 Last Admin: 03/06/18 19:29 Dose: 25 mg MAR Pulse and Blood Pressure Document 03/06/18 19:29 PAULA (Rec: 03/06/18 19:29 [id number]) Pulse Pulse Rate (60-90) 89 Blood Pressure Blood Pressure (100/60-150/90) 154/96 Morphine Sulfate (Morphine) 4 mg IVP STAT STA Stop: 03/06/18 02:16 Last Admin: 03/06/18 02:28 Dose: 4 mg MAR Pain Assessment Document 03/06/18 02:28 AD (Rec: 03/06/18 02:28 AD [id number]) Pain Reassessment Is this a pain reassessment? No Presence of Pain Presence of Pain Yes Pain Scale Used Pain Scale Used Numeric Description Intensity of Pain at present 8 Pain Behavior Facial Grimacing IVP Administration Document 03/06/18 02:28 AD (Rec: 03/06/18 02:28 AD [id number]) Charges for Administration # of IVP Administrations 1 Re-Assess: [facility] Pain Assessment Document 03/06/18 03:28 FDE (Rec: 03/06/18 06:22 [id number] Pain Reassessment Is this a pain reassessment? Yes Sleep Is patient sleeping during reassessment? Yes Morphine Sulfate (Morphine) 4 mg IVP STAT STA Stop: 03/06/18 03:15 Last Admin: 03/06/18 03:14 Dose: 4 mg [facility] Pain Assessment Document 03/06/18 03:14 AD (Rec: 03/06/18 03:37 AD [id number]) Pain Reassessment Is this a pain reassessment? No Presence of Pain Presence of Pain Yes Pain Scale Used Pain Scale Used Numeric Location Left, Right or Bilateral Left Pain Location Body Site Chest Description Intensity of Pain at present 8 IVP Administration Document 03/06/18 03:14 AD (Rec: 03/06/18 03:37 AD [id number]) Charges for Administration # of IVP Administrations 1 Re-Assess: [facility] Pain Assessment Document 03/06/18 04:14 FDE (Rec: 03/06/18 06:22 [id number]) Pain Reassessment Is this a pain reassessment? Yes Sleep Is patient sleeping during reassessment? Yes Morphine Sulfate (Morphine) 4 mg IVP STAT STA Stop: 03/06/18 03:26 Nitroglycerin (Nitro-Bid 2% Oint) 1 ea TOP STAT STA Stop: 03/06/18 02:50 Last Admin: 03/06/18 02:57 Dose: 1 ea Ondansetron HCl (Zofran Inj) 4 mg IVP STAT STA Stop: 03/06/18 02:16 Last Admin: 03/06/18 02:29 Dose: 4 mg IVP Administration Document 03/06/18 02:29 AD (Rec: 03/06/18 02:29 AD [id number]) Charges for Administration # of IVP Administrations 1 Ondansetron HCl (Zofran Inj) 4 mg IVP STAT STA Stop: 03/06/18 03:15 Last Admin: 03/06/18 03:15 Dose: 4 mg IVP Administration Document 03/06/18 03:15 AD (Rec: 03/06/18 03:37 AD [id number]) Charges for Administration # of IVP Administrations 1 Potassium Chloride (K-Dur 20 Meq Er Tab) 40 meq PO ONCE ONE Stop: 03/06/18 11:29 Last Admin: 03/06/18 17:59 Dose: 40 meq Ticagrelor (Brilinta) 180 mg PO STAT STA Stop: 03/06/18 11:24 Last Admin: 03/06/18 17:59 Dose: 180 mg - Scribe Statement The provider has reviewed the documentation as recorded by the Lesli Wilson Provider Scribe Attestation: All medical record entries made by the Svitlanaibtram were at my direction and personally dictated by me. I have reviewed the chart and agree that the record accurately reflects my personal performance of the history, physical exam, medical decision making, and the department course for this patient. I have also personally directed, reviewed, and agree with the discharge instructions and disposition. Disposition/Present on Arrival - Present on Arrival Any Indicators Present on Arrival: No History of DVT/PE: No History of Uncontrolled Diabetes: No Urinary Catheter: No History of Decub. Ulcer: No History Surgical Site Infection Following: None - Disposition Have Diagnosis and Disposition been Completed?: Yes Diagnosis: Abnormal cardiac enzyme level, Acute coronary syndrome Disposition: HOSPITALIZED Disposition Time: 02:00 Patient Plan: Admission, Telemetry Condition: FAIR
[2018-03-06] MEDS ORDERED: Albuterol-Ipratrop 3 mg / 0.5 (3 ml) UD IH STA (02:15)
[2018-03-06] MEDS ORDERED: Albuterol 0.083% Inhal Sol (2.5 mg/3 mL) UD INH STA (02:15)
[2018-03-06] MEDS ORDERED: Morphine 4 mg/ml ISec IVP STA ×3 (02:15→03:25)
[2018-03-06 02:20] LABS: B-TYPE NATRIURETIC PEPTIDE 111 pg/mL (0-450)
[2018-03-06 02:21] LABS: INR 0.94 (0.93-1.08); PROTHROMBIN TIME 10.7 SECONDS (9.4-12.5)
[2018-03-06] MEDS ORDERED: Iodixanol 320 MG/ML 100 ML BOTTLE IV ONE (02:23)
[2018-03-06 02:42] LABS: URINE BILIRUBIN NEGATIVE (NEGATIVE); URINE BLOOD TRACE-LYSED (NEGATIVE); URINE GLUCOSE (UA) NEGATIVE (NEGATIVE); URINE LEUKOCYTE ESTERASE NEGATIVE Leu/uL (NEGATIVE); URINE PROTEIN NEGATIVE mg/dL (<30 mg/dL); URINE UROBILINOGEN 0.2 E.U./dL (<1 E.U./dL)
[2018-03-06 02:46] LABS: TROPONIN I 0.24 ng/mL
[2018-03-06] MEDS ORDERED: Nitroglycerin 2% Ointment Foilpak UD TOP STA (02:49)
[2018-03-06 02:55] LABS: URINE COLOR YELLOW (YELLOW)
[2018-03-06 02:56] LABS: URINE APPEARANCE CLEAR (CLEAR)
[2018-03-06 03:28] LABS: URINE BACTERIA MOD (NEG)
[2018-03-06] MEDS ORDERED: Enoxaparin 120 mg Syringe SC SCH (04:30)
--- NOTE | 2018-03-06 08:50 | CT ---
Date of service: 03/06/2018 PROCEDURE: CT Chest with contrast (Pulmonary Angiogram) HISTORY: Possible PE COMPARISON: None available. TECHNIQUE: Axial computed tomography images were obtained of the chest in the pulmonary arterial phase of enhancement. Coronal and sagittal reformatted images were created and reviewed. Intravenous contrast dose: 100 mL Visipaque 320 Radiation dose: Total exam DLP = 588.66 mGy-cm. This CT exam was performed using one or more of the following dose reduction techniques: Automated exposure control, adjustment of the mA and/or kV according to patient size, and/or use of iterative reconstruction technique. FINDINGS: PULMONARY ARTERIES: No filling defects in the pulmonary arteries to suggest acute pulmonary embolism. AORTA: No acute findings. No thoracic aortic aneurysm. LUNGS: The lungs are clear. No nodule, mass or pulmonary consolidation. PLEURAL SPACES: No effusion or pneumothorax. HEART: Mild cardiomegaly with left ventricular hypertrophy. No significant pericardial effusion. LYMPH NODES: No pathologic lymphadenopathy. BONES, CHEST WALL: Within normal limits for the patient's age. No fracture or destructive lesion OTHER FINDINGS: There is a 2.7 cm benign right adrenal adenoma. There are simple and parapelvic cysts in the visualized kidneys. There is a 6 mm nonobstructing stone in the upper pole of the right kidney. IMPRESSION: No CT evidence for acute pulmonary embolism. Clear lungs. A preliminary report was provided by [facility].
--- NOTE | 2018-03-06 09:28 | RAD ---
Date of service: 03/06/2018 HISTORY: Chest Pain COMPARISON: 12/25/2016. FINDINGS: LUNGS: The lungs are well inflated and clear. PLEURA: No significant pleural effusion identified, no pneumothorax apparent. CARDIOVASCULAR: Normal. OSSEOUS STRUCTURES: No significant abnormalities. VISUALIZED UPPER ABDOMEN: Normal. OTHER FINDINGS: None. IMPRESSION: No active pulmonary disease.
[2018-03-06] MEDS ORDERED: Morphine 2 mg/ml ISec IVP PRN (10:55)
[2018-03-06] MEDS ORDERED: Potassium Chloride 20 mEq ER Tab PO ONE (11:28)
--- NOTE | 2018-03-06 12:23 | CARD ---
APPROVED REPORT Date of service: 03/06/2018 EKG Measurement Heart [id number] [id number] <Conclusion> Sinus bradycardia Left axis deviation Nonspecific intraventricular conduction delay T wave abnormality, consider anterior ischemia Abnormal ECG
[2018-03-06] MEDS: Insulin Reg-MEDIUM-Coverage SC SCH ×4 (12:25→21:43)
--- NOTE | 2018-03-06 13:48 | CON ---
DATE: 03/06/2018 SERVICE: Cardiology. REASON FOR THE CONSULTATION: Unstable angina, chest pain, history of coronary artery disease. REASON FOR DICTATION: Covering Dr. Alexander Poole. BRIEF CLINICAL HISTORY: A 62-year-old male with past medical history significant for hypertension, diabetes, hyperlipidemia, history of coronary artery disease in 06/2015, status post PTCA was done with Dr. Sosa Pelletier, off Brilinta after a year who said that yesterday he had a sharp chest pain, very severe and broken ____ going to the Emergency Room. T-wave shows some ST-T changes and first troponin is positive. The patient denies any prior episodes; since then, had an angioplasty, but same chest pain when he had before stent. Denies any recent episode of chest pain, dyspnea on exertion. PAST MEDICAL HISTORY: Significant for coronary artery disease, status post stent in 06/2015; history of hypertension; history of diabetes; history of hyperlipidemia; history of [place] at that time; history recent spinal surgery in 10/2016. CURRENT MEDICATIONS: The patient is taking metformin 500 mg twice a day; amlodipine 10 mg daily; Brilinta 60 mg, but stopped; Naprosyn; metoprolol; lidocaine; cyanocobalamin; atorvastatin; aspirin. REVIEW OF SYSTEMS: As per HPI. PHYSICAL EXAMINATION: VITAL SIGNS: Temperature afebrile, heart rate 60, blood pressure 135/85. HEENT: PERRLA. Extraocular muscles intact. NECK: Supple. No carotid bruit or thyromegaly. CHEST: Clear to auscultation. HEART: S1, S2 regular. ABDOMEN: Soft. EXTREMITIES: Clubbing and cyanosis negative. LABORATORY DATA: Blood workup as follows: WBC 8.8, hemoglobin 12.2, hematocrit 37.2, platelet count 308. Chemistry shows sodium 140, potassium 3.6, chloride 108, carbon dioxide 25, anion gap of 15, BUN 14, creatinine 0.7, troponin 0.04. EKG shows normal sinus. T inversion in V5 to V6. IMPRESSION: Unstable angina, acute coronary artery syndrome, diabetes, hypertension, hyperlipidemia, obesity, history of coronary artery disease, status post stent in 06/2015. RECOMMENDATIONS: We will give another dose of Lovenox. The patient will get 1 mg of Lovenox at 04:00 a.m. We will give another at 04:00 p.m. and we will keep n.p.o. after 12:00 midnight for possible cardiac catheterization and possible stent. The risks, benefits and alternatives discussed with the patient, the patient agreed. Discussed with Dr. Starks. We will turn over the care tomorrow to Dr. Poole and is scheduled for cardiac catheterization tomorrow for Dr. Poole. Ana Galarza MD
[2018-03-06] MEDS: cefTRIAXone 1 gm 1 GM/100 ML BAG IVPB SCH (14:47)
[2018-03-06] MEDS ORDERED: Enoxaparin 120 mg Syringe SC ONE (17:00)
--- NOTE | 2018-03-06 22:32 | HP ---
HISTORY OF PRESENT ILLNESS: I saw Derrek resting comfortably in bed. He came in with left-sided chest pain associated with cough and sputum for about 4-5 days. 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 He states the chest pain really hurts, it will not go away. PAST MEDICAL HISTORY: He has a past medical history that includes CAD with stents, myocardial infarction, hypertension, diabetes, high cholesterol, recent spinal fusion surgery in October of 2016. He has right hip pain from osteoarthritis and need of a right total hip replacement. He has hypertension. He has sleep apnea. He has diabetes. Musculoskeletal disorders. He had a left hip replacement, herniated disk. He needs a right hip replacement next. He had spinal fusion in the past. FAMILY HISTORY: Hypertension in the family. SOCIAL HISTORY: He does still smoke. No alcohol. Does smoke marijuana. No substance abuse other than that. ALLERGIES: NO KNOWN DRUG ALLERGIES. MEDICATIONS: He does take home meds consisting of Brilinta, Ecotrin, Feosol, Flexeril, metformin, Lidoderm patch, naproxen, Lipitor, Norvasc and Toprol. REVIEW OF SYSTEMS: No fevers. No chills. No vision or hearing changes. He does have a cough and sputum. No shortness of breath. He does have chest pain. No palpitations. Left-sided chest pressure. No nausea, vomiting, constipation, diarrhea. He does have back pain, right hip pain, looking for pain medication. No headache or dizziness. The skin for the most part is intact that he knows of. PHYSICAL EXAMINATION: VITAL SIGNS: He has a 98.7 temp, 59 pulse, 20 respiratory rate, 145/88 blood pressure, 100% O2 sat on room air. HEENT: His head is atraumatic, normocephalic. He is alert and oriented x3. His pupils equal, reactive to light and accommodation. Extraocular muscles are intact. Throat is moist. NECK: Supple. HEART: Regular rate. Normal S1 and S2. LUNGS: Decreased breath sounds, some rhonchi. ABDOMEN: Soft, nontender. Positive bowel sounds. EXTREMITIES: No edema. He does have right hip of right hip pain with motion. GCS is 15. Cranial nerves II through XII grossly intact. SKIN: Warm and dry. No apparent rashes or ulcers. NEUROLOGIC: Alert and oriented x3. Thyroid midline. No palpable appreciable lymphadenopathy. He had a chest CT angio that was done. No pulmonary embolus. Nonobstructing right nephrolithiasis. Does have a kidney stone, 2.4 cm right adrenal nodule. LABORATORY DATA: He has an 8.8 white count, 12.2 hemoglobin, 37.2 hematocrit with 308 platelets. Urine is clean. Sodium was 144, potassium 3.6, chloride 108, carbon dioxide 25, anion gap of 15, BUN creatinine 0.7, GFR is greater than 60, sugar is 149, calcium 9.2, total bili is 0.4, AST is 28, ALT is 25, alk phos , lactate dehydrogenase is 504, total creatine kinase is 586. The troponin is high at 0.24. BNP is 111, total protein 7.5, albumin is 4.2. INR is 0.94. IMPRESSION: He is having a [id number] myocardial infarction on top of diabetes, also cough, urinary tract infection. He will be on Rocephin. 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 We will probably do a cardiac cath tomorrow. He is on Lovenox, morphine, amlodipine, metoprolol. We will check his labs tomorrow. He is resting comfortably and he is here for [id number] myocardial infarction with urinary tract infection and cough. He will be on Rocephin. Cedrick Starks DO [facility]PITALKristine
[2018-03-07 06:44] LABS: HEMOGLOBIN 12.3 g/dL (14.0-18.0); MEAN CELL VOLUME 80.9 fl (80.0-105.0); MEAN CORPUSCULAR HEMOGLOBIN 26.5 pg (25.0-35.0); MEAN CORPUSCULAR HGB CONC 32.7 g/dl (31.0-37.0); MEAN PLATELET VOLUME 9.5 fl (7.0-11.0); RBC 4.65 10^6/uL (3.5-6.1); WHITE BLOOD COUNT 13.8 10^3/ul (4.5-11.0)
[2018-03-07 06:58] LABS: LDL CHOLESTEROL 188 mg/dL (0-129)
[2018-03-07 07:09] LABS: ALB/GLOB RATIO 1.3 (1.1-1.8); ALBUMIN 4.1 g/dL (3.0-4.8); ALT/SGPT 26 U/L (7-56); AST/SGOT 34 U/L (17-59); BLOOD UREA NITROGEN 17 mg/dL (7-21); CALCIUM 9.3 mg/dL (8.4-10.5); GFR AFRICAN-AMERICAN > 60; GFR NON-AFRICAN AMERICAN > 60; HDL CHOLESTEROL 49 mg/dL (29-60)
[2018-03-07] MEDS: Insulin Reg-MEDIUM-Coverage SC SCH ×4 (07:30→21:54)
--- NOTE | 2018-03-07 08:27 | PN ---
DATE: 03/07/2018 SUBJECTIVE: He is going to be going down for cardiac catheterization this morning. He had positive troponins and he has an NSTEMI. Also, urinary tract infection, he is a diabetic. MEDICATIONS: He is on aspirin, Brilinta, insulin, Lipitor, morphine, Norvasc, Rocephin, Toprol and Tylenol. PHYSICAL EXAMINATION: VITAL SIGNS: 98.3 temp, 58 pulse, 147/97 blood pressure, 18 respiratory rate, 99% O2 sat on room air. HEENT: His head is atraumatic, normocephalic. HEART: Regular rate. LUNGS: Decreased breath sounds, but clear. ABDOMEN: Soft, obese, nontender. EXTREMITIES: No edema. LABORATORY DATA: He has a 13.8 white count, he is on Rocephin; 12.3 hemoglobin; 37.6 hematocrit with platelets. He has a 143 sodium, potassium 4.1, BUN 17, creatinine 0.8, GFR is greater than 60, sugar is 122, calcium is 9.3, phosphorus 2.7, magnesium 2.1, total bili is 0.5, AST is 34, ALT is 26, alk phos is 55. Troponin went to 0.61. Total protein 7.3, cholesterol is 269. ASSESSMENT AND PLAN: He has consults with Cardiology. We will continue with Rocephin. We will check his labs tomorrow. He was given a dose of methylprednisolone, which is probably why the white count bumped up. He did have a urinary tract infection. As per Cardiology, continue with aggressive treatment and care on Derrekjerica Fry. He is going to go for a cardiac catheterization and probably stent placement. Cedrick Starks DO MTDKristine
[2018-03-07] MEDS: Metoprolol Succinate 25 mg XL Tab PO SCH ×2 (08:41→09:47)
[2018-03-07] MEDS ORDERED: Iodixanol 320 MG/ML 200 ML BOTTLE IV ONE (10:03)
[2018-03-07] MEDS ORDERED: Lidocaine 2% Inj (20ml) ONE ×2 (10:03→11:07)
[2018-03-07] MEDS ORDERED: Midazolam 2 MG/2 ML VIAL ONE ×2 (10:41→10:54)
[2018-03-07] MEDS ORDERED: Sodium Chloride 0.9% 1,000 ML IV SCH (11:45)
--- NOTE | 2018-03-07 13:19 | CARDCATH ---
PROCEDURE DATE: 03/07/2018 HISTORY: The patient is a 62-year-old male with a history of hypertension, diabetes mellitus, hypercholesterolemia, status post PTCA and stent several years ago, and continues to smoke. He presents with unstable angina and a non-STEMI. Because of this, a cardiac catheterization was recommended. PROCEDURES: Left heart catheterization with coronary arteriography and left ventriculogram, followed by percutaneous transluminal coronary angioplasty and stent of a proximal LAD. The right femoral artery was cannulated with a 6-Mosotho sheath. There were no complications. I performed moderate sedation which included the presence of an independent trained observer who assisted in monitoring the patient's level of consciousness and physiologic status. After administration of Versed and fentanyl, my intra-service time was 30 minutes. The findings on catheterization revealed a right dominant circulation. The RCA revealed proximal critical lesion of 70% to 80% stenosis with diffuse disease throughout the RCA. The left main artery was unremarkable. At the very proximal portion before the stent that was placed previously, there was a 99% stenosis noted in the LAD. The rest of the LAD revealed intimal irregularities without critical lesions. The stent is patent. The circumflex artery and obtuse marginal branches were free of significant disease. Left ventriculogram was performed in the JAIME projection. In the JAIME projection, wall motion is within normal limits. Estimated ejection fraction is 60%. The patient was started on intravenous Angiomax on the fluoroscopic guide, the guiding catheter was placed in the ostium of the left main artery. An 0.014 ATW wire was used to cross the critical lesion. A 3.0 balloon was utilized to predilate the lesion. A 4.0 x 8 mm drug-eluting stent was placed and deployed at 17 ounces of pressure. Repeat coronary arteriography revealed an excellent result with no residual stenosis and YANA III flow. Angio-Seal was used to close the femoral artery site. The patient tolerated the procedure well. In summary, the procedure was successful, PTCA and stent of a 99% stenosis in the proximal LAD before the previously placed stent. The cardiac catheterization reveals two-vessel CAD in the LAD and RCA. LV function is normal. Given these findings, the patient will remain on aspirin indefinitely and Brilinta for at least a year. We will bring him back in 1 week for PTCA and stent of an RCA. Alexander Poole MD [facility] # [id number]
[2018-03-07] MEDS: Morphine 2 mg/ml ISec IVP PRN ×3 (14:05→20:26)
[2018-03-07] MEDS: cefTRIAXone 1 gm 1 GM/100 ML BAG IVPB SCH (17:02)
--- NOTE | 2018-03-07 19:22 | CARD ---
APPROVED REPORT Date of service: 03/07/2018 EKG Measurement Heart [id number] MA [id number] [id number] <Conclusion> Normal sinus rhythm Nonspecific intraventricular conduction delay ST & Marked T wave abnormality, consider anterolateral ischemia Abnormal ECG
[2018-03-08] MEDS: Morphine 2 mg/ml ISec IVP PRN (01:05)
[2018-03-08 05:54] VITALS: RESP 20; TEMP 98.6; O2SAT 98
[2018-03-08 06:48] LABS: BASO # 0.02 K/mm3 (0.0-2.0); BASO % 0.2 % (0.0-3.0); EOS # 0.2 (0.0-0.7); EOS % 1.9 % (1.5-5.0); GRAN # 4.63 (1.4-6.5); GRAN % 46.3 % (50.0-68.0); LYMPH # 4.2 (1.2-3.4); LYMPH % 42.1 % (22.0-35.0); MEAN CELL VOLUME 80.8 fl (80.0-105.0); MEAN CORPUSCULAR HEMOGLOBIN 26.5 pg (25.0-35.0); MEAN CORPUSCULAR HGB CONC 32.8 g/dl (31.0-37.0); MEAN PLATELET VOLUME 9.6 fl (7.0-11.0); MONO % 9.5 % (1.0-6.0); RBC 4.9 10^6/uL (3.5-6.1); RED CELL DISTRIBUTION WIDTH 16.2 % (11.5-14.5)
[2018-03-08 07:20] LABS: ALB/GLOB RATIO 1.3 (1.1-1.8); ALBUMIN 4.1 g/dL (3.0-4.8); ALT/SGPT 25 U/L (7-56); AST/SGOT 19 U/L (17-59); BLOOD UREA NITROGEN 15 mg/dL (7-21); CALCIUM 9.5 mg/dL (8.4-10.5); GFR AFRICAN-AMERICAN > 60; GFR NON-AFRICAN AMERICAN > 60
[2018-03-08] MEDS: Insulin Reg-MEDIUM-Coverage SC SCH (08:12)
--- NOTE | 2018-03-08 08:28 | PN ---
DATE: 03/08/2018 CARDIOLOGY FOLLOWUP SUBJECTIVE: The patient is chest pain free. He is ambulating. PHYSICAL EXAMINATION: VITAL SIGNS: Blood pressure is 137/79, heart rate is in the 60s. NECK: Negative JVD. LUNGS: Without rales. HEART: Reveals S1, S2. EXTREMITIES: Without edema. The right groin site is stable. EKG is unchanged. LABORATORY DATA: BUN and creatinine are unremarkable. Glucose is 113. Hemoglobin is 13. IMPRESSION: 1. Stable post percutaneous transluminal coronary angioplasty and stent. 2. Multivessel coronary artery disease. 3. Diabetes mellitus. 4. Chronic obstructive pulmonary disease. 5. Hypercholesterolemia. 6. Hypertension. PLAN: Given these findings, the patient is stable for discharge. We will discharge the patient on aspirin, Plavix as well as statin therapy. The patient is scheduled to come back next week for PTCA of his other vessels. Alexander Poole MD
[2018-03-08] MEDS: cefTRIAXone 1 gm 1 GM/100 ML BAG IVPB SCH (09:19)
[2018-03-08] MEDS: Metoprolol Succinate 25 mg XL Tab PO SCH (09:20)
[2018-03-08 09:23] VITALS: BP 115/68; PULSE 60
--- NOTE | 2018-03-08 12:46 | DS ---
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 He is okay to go. MEDICATIONS: He is on Brilinta, Ecotrin, Flexeril, Lipitor, Rocephin, Toprol and Tylenol. PHYSICAL EXAMINATION: VITAL SIGNS: 98.6 temp, 66 pulse, 137/79 blood pressure, 20 respiratory rate, 90% O2 sat on room air. GENERAL: I saw him this morning resting in bed. The first thing he said to me is why am I late, when can I go home. I will discharge him this morning. LABORATORY DATA: He has a 10 white count, 13 hemoglobin, 39.6 hematocrit with 338 platelets. He has a 144 sodium, potassium 4.1, BUN 15, creatinine 0.9, GFR is greater than 60, sugar is 113, calcium is 9.5. He has a total bili of 0.5, AST is 19, ALT is 25, alk phos 56, total protein 7.1. ASSESSMENT AND PLAN: Dr. Alexander Poole said he could go. He is status post catheterization and stent placement, multivessel coronary disease, diabetes. He will be on aspirin and Plavix. He will come back the next week for another PTCA for other vessels to be stented. He has got bad coronary artery disease. Cedrick Starks DO
--- NOTE | 2018-03-08 17:38 | CON ---
DATE: 03/08/2018 ORTHOPEDIC CONSULTATION HISTORY OF PRESENT ILLNESS: The patient is a 62-year-old male with low back pain starting since after the cardiac cath and he has experienced extreme back pain with no radiculopathy. He did have a previous back surgery with instrumentation and bilateral total hip replacement. Twenty-four hours after the procedure, he gets up out of bed and he has been going to the bathroom on his own. No signs of sciatica or radiculopathy to lower legs, good pulses. He can do straight leg raising, so it was a temporary back spasm from the aggravation of pain on the table for the cardiac catheterization being that he had rods in his back from previous spinal surgery, he was very stiff and difficult to move around the hard table. He did have bilateral thr which are not giving him any trouble. These are the patient's temporary back spasm aggravated by the radiology table, but he is doing well now and he feels like he can go home without any trouble and no permanent effect was incurred. FINAL DIAGNOSIS:temporery muscle back spasm aggravated by post spinal fusion with instrumentation, but right now these are all resolved. Ronald Blas DO [facility]
== END 2018-03-08 11:23 | disposition home or self-care (01) | DRG 247 ==
LOC: ED 01:29 → ERH 04:19 → 2RNO 05:52 → 2RSO 03-07 11:47
PROVIDERS: ADMIT Family Medicine; ATTEND Family Medicine
PROC: 027034Z Dilation of Coronary Artery, One Artery with Drug-eluting Intraluminal Device, Percutaneous Approach (ICD-10-PCS; principal; 2018-03-07)
PROC: 4A023N7 Measurement of Cardiac Sampling and Pressure, Left Heart, Percutaneous Approach (ICD-10-PCS; 2018-03-07)
PROC: B2111ZZ Fluoroscopy of Multiple Coronary Arteries using Low Osmolar Contrast (ICD-10-PCS; 2018-03-07)
PROC: B2151ZZ Fluoroscopy of Left Heart using Low Osmolar Contrast (ICD-10-PCS; 2018-03-07)
DX: I21.4 Non-ST elevation (NSTEMI) myocardial infarction (principal); N39.0 Urinary tract infection, site not specified; I25.110 Atherosclerotic heart disease of native coronary artery with unstable angina pectoris; E11.9 Type 2 diabetes mellitus without complications; E27.8 Other specified disorders of adrenal gland; E78.00 Pure hypercholesterolemia, unspecified; E78.5 Hyperlipidemia, unspecified; F12.90 Cannabis use, unspecified, uncomplicated; F17.200 Nicotine dependence, unspecified, uncomplicated; G47.30 Sleep apnea, unspecified; I10 Essential (primary) hypertension; J44.9 Chronic obstructive pulmonary disease, unspecified; M16.11 Unilateral primary osteoarthritis, right hip; N20.0 Calculus of kidney; Z96.643 Presence of artificial hip joint, bilateral; Z98.1 Arthrodesis status; Z82.49 Family history of ischemic heart disease and other diseases of the circulatory system

== ENCOUNTER 2018-03-18 06:12 | Day surgery (SDC) | payer MEDICARE ==
[2018-03-09 11:17] VITALS: BMI 32.0
[2018-03-18] MEDS ORDERED: Lidocaine 2% Inj (20ml) ONE (06:56)
[2018-03-18] MEDS ORDERED: Iohexol 350mgl/ml 50 ML ONE (06:57)
[2018-03-18] MEDS ORDERED: Iodixanol 320 MG/ML 200 ML BOTTLE IV ONE (06:57)
[2018-03-18] MEDS ORDERED: Nitroglycerin 50mg in D5W 0 MG/0 ML BOTTLE IV ONE (06:58)
[2018-03-18 07:08] LABS: BASO # 0.04 K/mm3 (0.0-2.0); BASO % 0.4 % (0.0-3.0); EOS # 0.5 (0.0-0.7); EOS % 5.2 % (1.5-5.0); GRAN # 3.44 (1.4-6.5); GRAN % 38.1 % (50.0-68.0); HEMOGLOBIN 11.4 g/dL (14.0-18.0); LYMPH # 4.2 (1.2-3.4); LYMPH % 46.5 % (22.0-35.0); MEAN CORPUSCULAR HEMOGLOBIN 26.6 pg (25.0-35.0); MEAN CORPUSCULAR HGB CONC 32.5 g/dl (31.0-37.0); MEAN PLATELET VOLUME 9.6 fl (7.0-11.0); MONO # 0.9 (0.1-0.6); MONO % 9.8 % (1.0-6.0); RBC 4.28 10^6/uL (3.5-6.1); RED CELL DISTRIBUTION WIDTH 15.7 % (11.5-14.5)
[2018-03-18 07:09] LABS: INR 0.97; PROTHROMBIN TIME 11.1 SECONDS (9.4-12.5)
[2018-03-18 07:12] LABS: PARTIAL THROMBOPLASTIN TIME 28.1 Seconds (25.1-36.5)
[2018-03-18 07:17] LABS: ALB/GLOB RATIO 1.3 (1.1-1.8); ALBUMIN 4.2 g/dL (3.0-4.8); ALT/SGPT 21 U/L (7-56); AST/SGOT 33 U/L (17-59); BLOOD UREA NITROGEN 12 mg/dL (7-21); CALCIUM 9.2 mg/dL (8.4-10.5); GFR AFRICAN-AMERICAN > 60; GFR NON-AFRICAN AMERICAN > 60
[2018-03-18] MEDS ORDERED: Midazolam 2 MG/2 ML VIAL ONE ×3 (07:48→07:59)
[2018-03-18] MEDS: Sodium Chloride 0.9% 1,000 ML IV SCH ×2 (09:04→20:57)
--- NOTE | 2018-03-18 09:18 | CARD ---
APPROVED REPORT Date of service: 03/18/2018 EKG Measurement Heart [id number] <Conclusion> Normal sinus rhythm Nonspecific T wave abnormality Abnormal ECG
--- NOTE | 2018-03-18 10:42 | CARD ---
APPROVED REPORT Date of service: 03/18/2018 EKG Measurement Heart [id number] NM [id number] <Conclusion> Sinus bradycardia Left axis deviation Nonspecific intraventricular block T wave abnormality, consider anterolateral ischemia Abnormal ECG
--- NOTE | 2018-03-18 10:56 | HP ---
Copied To: Cedrick Starks DO Attending MD: Cedrick Starks DO HISTORY OF PRESENT ILLNESS: I know Derrek from my office and Dr. Poole asked me to put him in the hospital. He is status post a cardiac cath and stent. He is a 62-year-old male, who is status post cardiac cath and stent, now in [facility]. He is resting comfortably in bed. He is to lie flat for 6 hours. He does have a history of back pain. He is comfortable at this time. He had 1 stent placed on 03/06/2018. This is his second stent placed. PAST MEDICAL HISTORY: He has a past medical history of diabetes, coronary artery disease, high cholesterol, hypertension, arthritis, anemia, GERD, chronic back pain. FAMILY HISTORY: He has a family history of cancer, history of hemorrhoids. His uncle and mom both had pancreatic cancer. There is cardiovascular disease in the family with his grandmother. PAST SURGICAL HISTORY: He has had past surgeries, PTCA stent x1, also one a couple of weeks ago and one today. He has had lumbar laminectomy and fusion in 2017, colonoscopy, left hip replacement in 09/2017. 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 SOCIAL HISTORY: He quit smoking after 50 years on 03/08/2018. He wears glasses. ALLERGIES: HE HAS NO KNOWN DRUG ALLERGIES. REVIEW OF SYSTEMS: No acute vision or hearing changes. No sore throat. At this time, no chest pain or palpitations. No shortness of breath or cough. No abdominal pain. No nausea, vomiting, constipation, diarrhea. He can move all 4 legs okay. Trace edema at times in the ankles. He does not know of any skin issues that might be affecting him. PHYSICAL EXAMINATION: VITAL SIGNS: He has a 98.3 temp, 63 pulse, 139/89 blood pressure, 98% O2 sat on room air. HEENT: His head is atraumatic, normocephalic. Extraocular muscles are intact. Throat is moist. NECK: Supple. HEART: Regular rate. LUNGS: Decreased breath sounds, but clear to auscultation. ABDOMEN: Soft, nontender. Positive bowel sounds. No guarding. No rebound. No CVA tenderness. EXTREMITIES: Have no edema. SKIN: From what I could tell, lying flat, I do not see any ulcers or rashes. LYMPHATICS: Thyroid midline. No palpable lymphadenopathy appreciated. LABORATORY DATA: He has 146 sodium, potassium 3.8, BUN 12, creatinine is 0.8, GFR is greater than 60, sugar is 100, calcium is 9.2, total bili is 0.3, AST is 33, ALT is 21, alk phos 52, total protein 7.3, albumin is 4.2. INR is 0.97. He has had a 9 white count, 11.4 hemoglobin, 35.1 hematocrit with 339 platelets. IMPRESSION: He will be followed and seen overnight. He will lie flat for 6 hours. He is status post stent placement. He is on Ecotrin, Lipitor, Plavix and IV fluids. We will adjust his medications as needed as he does here. I might have to add the Norvasc and metoprolol back on depending on his blood pressure and how he is doing. laying flat. We will watch him overnight and hopefully discharge him tomorrow. He is here for coronary artery disease, stent placement, hypertension. He is a diabetic. Dr. Starks dictating on Derrek Lisandra, he will be on an insulin coverage. Cedrick Starks DO MTDD
--- NOTE | 2018-03-18 11:16 | CARDCATH ---
Copied To: Alexander Poole MD Attending MD: Alexander Poole MD PROCEDURE DATE: 03/18/2018 CARDIAC CATH AND PTCA HISTORY: The patient is a 62-year-old male with diabetes mellitus, hypertension and hypercholesterolemia, who presents with unstable angina and documented multivessel CAD. He is here for PTCA and stent of an RCA. The left femoral artery was cannulated with a 6-Sami sheath. There were no complications. I performed moderate sedation, which included the presence of an independent trained observer that assisted in monitoring the patient's level of consciousness and physiologic status. After administration of Versed and fentanyl, my intra service time was 30 minutes. The findings on catheterization revealed the proximal LAD stent that was placed last week was patent with good flow and with YANA-3 flow and no residual stenosis. The RCA was a dominant vessel and revealed multiple critical lesions including 80% stenosis in the proximal portion followed by an eccentric 80% stenosis in the midportion. The patient was started on intravenous Angiomax on the fluoroscopic guide, the guiding catheter was placed in the ostium of the RCA. An 0.014 ATW wire was used to cross the critical lesions. A 3 x 15 mm drug-eluting stent was placed and deployed in the mid lesion at 14 atmospheres of pressure. A 3 x 12 mm drug-eluting stent was placed and deployed at 14 atmospheres of pressure in the proximal lesion. Repeat coronary arteriography revealed an excellent result with no residual stenosis and YANA-3 flow. Angio-Seal was used to close the femoral artery site. The patient tolerated the procedure well. In summary, the procedure was successful for PTCA and stent of two lesions in the RCA with drug-eluting stents. Cardiac catheterization reveals two-vessel CAD with a patent stent in the proximal LAD that was placed last week as well as two critical lesions in the RCA, which was relieved with PEARL stents. Given these findings, the patient will need to remain on aspirin indefinitely and Plavix for at least a year and undergo a strict cardiac risk reduction program. Alexander Poole MD
[2018-03-18] MEDS: Insulin Reg-MEDIUM-Coverage SC SCH ×3 (12:11→21:44)
[2018-03-18] MEDS: Morphine 2 mg/ml ISec IVP PRN (12:56)
[2018-03-19 06:28] VITALS: BP 144/89; RESP 18; TEMP 98.4; O2SAT 99
[2018-03-19 07:21] LABS: BASO # 0.02 K/mm3 (0.0-2.0); BASO % 0.2 % (0.0-3.0); EOS # 0.4 (0.0-0.7); EOS % 4.1 % (1.5-5.0); GRAN # 4.73 (1.4-6.5); GRAN % 49.1 % (50.0-68.0); HEMOGLOBIN 11.1 g/dL (14.0-18.0); LYMPH # 3.6 (1.2-3.4); LYMPH % 37.6 % (22.0-35.0); MEAN CELL VOLUME 82.5 fl (80.0-105.0); MEAN CORPUSCULAR HEMOGLOBIN 26.6 pg (25.0-35.0); MEAN CORPUSCULAR HGB CONC 32.2 g/dl (31.0-37.0); MEAN PLATELET VOLUME 9.8 fl (7.0-11.0); MONO # 0.9 (0.1-0.6); RBC 4.18 10^6/uL (3.5-6.1); RED CELL DISTRIBUTION WIDTH 15.7 % (11.5-14.5); WHITE BLOOD COUNT 9.7 10^3/ul (4.5-11.0)
[2018-03-19 07:39] LABS: ALB/GLOB RATIO 1.3 (1.1-1.8); ALBUMIN 3.7 g/dL (3.0-4.8); ALT/SGPT 20 U/L (7-56); AST/SGOT 21 U/L (17-59); BLOOD UREA NITROGEN 15 mg/dL (7-21); GFR AFRICAN-AMERICAN > 60; GFR NON-AFRICAN AMERICAN > 60
[2018-03-19] MEDS: Insulin Reg-MEDIUM-Coverage SC SCH (08:28)
--- NOTE | 2018-03-19 09:05 | CARD ---
APPROVED REPORT Date of service: 03/19/2018 EKG Measurement Heart [id number] CO [id number] [id number] <Conclusion> Normal sinus rhythm Left axis deviation Nonspecific intraventricular conduction delay T wave abnormality, consider lateral ischemia Abnormal ECG
[2018-03-19] MEDS: Morphine 2 mg/ml ISec IVP PRN (11:48)
[2018-03-19 13:33] VITALS: PULSE 58
--- NOTE | 2018-03-19 13:59 | PN ---
Copied To: Bob Traore MD Attending MD: Bob Traore MD DATE: 03/19/[address] Alexander Poole. SUBJECTIVE: The patient denies any chest pain or groin bleeding. No reports of ventricular arrhythmia. PHYSICAL EXAMINATION: VITAL SIGNS: Blood pressure 144/89, heart rate 65, temperature 98.4, respirations 18. HEENT: Normocephalic. CHEST: Clear. HEART: S1 and S2 regular. ABDOMEN: Soft. EXTREMITIES: No left groin hematoma. No pedal edema. LABORATORY DATA: Today's hemoglobin and hematocrit 11.1 and 34.5. White count and platelet count are within normal limit. Today's SMA-7 is entirely within normal limit. Today's EKG revealed sinus rhythm, left-axis deviation. Nonspecific intraventricular conduction delay. ASSESSMENT: 1. Status post percutaneous transluminal coronary angioplasty and drug-eluting stent to two lesions of right coronary artery. The patient was found to have patent proximal left anterior descending stent placed last week. 2. Diabetes mellitus. RECOMMENDATIONS: The patient can be discharged from the cardiac point of view on aspirin 81 mg once a day, Lipitor at 40 mg once a day, Plavix 75 mg once a day and the patient will follow up with Dr. Alexander Poole as an outpatient. Bob Traore MD
--- NOTE | 2018-03-20 06:05 | DS ---
Copied To: Cedrick Starks DO Attending MD: Cedrick Straks DO HISTORY OF PRESENT ILLNESS: He was sitting out of bed to chair. He was talking on his cell phone. He is doing well, eating well, walking. He is going to be discharged today. He is status post cardiac cath and stent placement by Dr. Poole yesterday. He will go home on his Norvasc, Toprol, Lipitor, Ecotrin, Plavix. I will start his Glucophage tomorrow. PHYSICAL EXAMINATION: VITAL SIGNS: He had 98.4 temp, 65 pulse, 144/89 blood pressure, 18 respiratory rate, 99% O2 sat on room. HEENT: Head is atraumatic, normocephalic. HEART: Regular rate. LUNGS: Clear to auscultation. ABDOMEN: Soft. EXTREMITIES: No edema. LABORATORY DATA: He had 9.7 white count, 11.1 hemoglobin, 34.5 hematocrit with 353 platelets. He has a 144 sodium, potassium is 4.3, BUN 50, creatinine 0.8, GFR is greater than 60, now his blood sugar was 100. ASSESSMENT AND PLAN: I discussed the good low sugar, low-salt diet. He needs to do more walking. Above prescriptions were given. He is not on any medications for diabetes. I told them if he watches his good diet we are giving him here in the hospital, he might not need to have the medication for diabetes. If he goes back to his poor diet, he may need to go back on the Glucophage again. He understands that. Calcium is 9, total bili is 0.3, AST is 21, ALT is 29, alk phos 52, total protein 6.4, albumin 2.7. He should come to the hospital next week and see me and then follow up with Dr. Poole. I gave him prescription coronary artery, stent placement, and diabetes. Cedrick Starks DO MTDD
== END 2018-03-19 13:06 | disposition home or self-care (01) ==
LOC: CATH 06:12 → 2RSO 08:40 → CATH 03-19 13:06
PROVIDERS: ATTEND Internal Medicine Cardiovascular Disease
DX: I25.110 Atherosclerotic heart disease of native coronary artery with unstable angina pectoris (principal); E11.9 Type 2 diabetes mellitus without complications; E78.00 Pure hypercholesterolemia, unspecified; G89.29 Other chronic pain; I10 Essential (primary) hypertension; K21.9 Gastro-esophageal reflux disease without esophagitis; Z79.02 Long term (current) use of antithrombotics/antiplatelets; Z87.891 Personal history of nicotine dependence; Z96.642 Presence of left artificial hip joint
CPT/HCPCS: 36415 ×2; 80053 ×2; 82948 ×2; 85025 ×2; 85027; 85610; 85730; 86850; 86900; 93005 ×2; 93454; 99152; 99153; C1760; C1769; C1874 ×2; C1887; C2629; C9600; J0583; J1644; J2250; J2270 ×2; J3010; J7030; Q9966; Q9967

== ENCOUNTER 2018-10-03 06:51 | Outpatient (CLI) | payer MEDICARE | END 2018-10-03 06:52 | disposition home or self-care (01) | LOC: CARDIO 06:51 | DX: I25.10 Atherosclerotic heart disease of native coronary artery without angina pectoris (principal) ==

== ENCOUNTER 2019-01-07 07:08 | Outpatient (CLI) | payer MEDICARE | END 2019-01-07 07:09 | disposition home or self-care (01) | LOC: LAB 07:08 ==